=== PATIENT | male | born 1970 | race Two or more races ===

== ENCOUNTER 2025-06-21 13:51 | Inpatient (IN) | payer MEDICAID, SELFPAY ==
[2025-06-21 13:54] VITALS: BMI 25.2
[2025-06-21 15:38] VITALS: BP 168/85; PULSE 92; RESP 17; TEMP 36.9; O2SAT 96
--- NOTE | 2025-06-21 15:59 | XR_ITS ---
Examination: AP chest single view Technique one AP portable upright chest single view Date and time: June 21, 2025, 1618 hrs. Indications: Patient fell 2 days ago with injury to the chest, chest pain. Findings: Normal heart size. No pneumothorax. Visualized clavicles, bones of the shoulders, and ribs appear intact Impression: No pneumothorax pulmonary contusion or hemothorax
--- NOTE | 2025-06-21 15:59 | XR_ITS ---
Examination: CT brain head without contrast. 2-D sagittal coronal reconstructions Date and time of exam:June 21, 2025, 1712 hrs. Indications: Ground-level fall 2 days ago with injury to head, head pain CTDI: vol (mGy):47.4 DLP: (mGycm):901 Technique: Multiple CT axial sections of the brain have been obtained, 5 mm slice thickness. Contrast has not been administered. 2-D sagittal, coronal reconstructions have been obtained Low dose protocols were performed. One or more of the following dose reduction techniques were used; automated exposure control, adjustment of the mA and/or KV according to patient size, use of iterative reconstruction technique. Findings: Study is significantly limited by patient motion Ventricles are not enlarged. No mass effect upon the ventricular system. No acute hemorrhage density either intra or extra-axial Cranial vault appears grossly intact Impression: Study is significantly limited by patient motion No acute hemorrhage or mass effect noted
--- NOTE | 2025-06-21 16:00 | EKG_ITS ---
[facility] Test Date: 2025-06-21 Pat Name: JESSICA DUMONT Department: Room: - Gender: Male Officer Lieutenant: : 1970 Requested By: Luis Rahman Order Number: [id number] Reading MD: Luis Rahman Measurements Intervals [place] Rate: 88 P: 66 DE: 162 QRS: 51 QRSD: 94 T: 33 QT: 394 QTc: 477 Interpretive Statements SINUS RHYTHM NONSPECIFIC T-WAVE ABNORMALITY Compared to ECG 04/19/2023 10:30:18 T-wave abnormality now present Sinus tachycardia no longer present ST (T wave) deviation no longer present /store/S0/[id number]/ecg/[id number].pdf
--- NOTE | 2025-06-21 16:01 | EDNOTE_ITS ---
ED Fall Injury RME/HPI General Chief Complaint: Fall Stated Complaint: BODY ACHES S/P FALL X2 DAYS Time Seen by Provider: 06/21/25 14:21 Arrival date/time: 06/21/25 13:51 RME / HPI RME / HPI Narrative: 55-year-old male patient with significant history of chronic alcoholism, came in with family for evaluation regarding fall. Patient sustained a ground-level fall about 2 days ago hit head, and also complaining of headache and chest wall pain. Currently patient is shaky, and feels anxious, last alcohol intake was yesterday. No vomiting no hallucination no other complaints noted. Related Data Previous Rx's ?Medication ?Instructions ?Recorded multivitamin with folic acid 400 1 tab PO QDAY #30 tab s 05/03/23 mcg tablet (Tab-A-Evie) thiamine mononitrate (vit B1) 100 100 mg PO QDAY #30 t abs 05/03/23 mg tablet (Vitamin B-1 (mononitrate)) Allergies Allergy/AdvReac Type Severity Reaction Status Date / Time No Known Allergies Allergy Verified 06/21/25 13:59 Review of Systems Review of Systems Narrative Review of Systems: 55-year-old male patient with significant history of chronic alcoholism, came in with family for evaluation regarding fall. Patient sustained a ground-level fall about 2 days ago hit head, and also complaining of headache and chest wall pain. Currently patient is shaky, and feels anxious, last alcohol intake was yesterday. No vomiting no hallucination no other complaints noted. ED Exam Narrative Physical exam: VITAL SIGNS: Reviewed. GENERAL APPEARANCE: Alert and interactive, follows commands, no acute distress, shaky, anxious HEAD AND FACE: Non-traumatic. ENT: PERRL, pink conjunctivitis, eyelid no trauma, Mucous membrane moist. 2 x 2 molelike lesion on the bridge of the nose NECK: Supple, nontender, no nuchal rigidity. CHEST: No tenderness, no crepitus, no paradoxical movement, no retractions. LUNGS: Clear, well ventilated, symmetric, no rales, no wheezing, no ronchi, no stridor, good breath sounds bilaterally. HEART: Regular rate, regular rhythm, no murmur, no gallops. ABDOMEN: Soft, positive bowel sounds, nondistended, no guarding, nontender, no rebound, no masses, RECTAL: Deferred. GENITAL: Deferred. NEUROLOGICAL: Gross motor function intact sensory function intact, Appropriate for age. MUSCULOSKELETAL: low back nontender, full range of motion. EXTREMITIES: Nontender, full range of motion. SKIN: Color pink, dry, no rash, no lacerations, no abrasions, no contusions. LYMPHATICS: Deferred. Course Quality Measures none Orders Category Date Time Status EKG (ED ONLY) *Do not use* NOW Care 06/21/25 16:[address] head/brain wo con Stat Exams 06/21/25 15:59 Completed EKG (ED Only) Stat Exams 06/21/25 16:00 Draft XR chest 1V Stat Exams 06/21/25 15:59 Completed Alcohol, Blood Medical Stat Lab 06/21/25 16:19 Completed CBC Stat Lab 06/21/25 16:19 Completed Comprehensive Metabolic Panel Stat Lab 06/21/25 16:19 Completed Drug Screen,Urine Stat Lab 06/21/25 18:45 Completed Magnesium Stat Lab 06/21/25 16:19 Completed Partial Thromboplastin Time Stat Lab 06/21/25 16:19 Completed Troponin I Stat Lab 06/21/25 16:19 Completed Urinalysis, C/S if Indicated Stat Lab 06/21/25 18:40 Completed Diazepam [Valium] Med 06/21/25 16:03 Discontinued 10 mg PO X1 ONE PHENobarbital Inj 130 mg Med 06/21/25 18:12 Discontinued Sodium Chloride 0.9% Flush [NS Flush] 12 ml IVP X1 Ringers Lactated 1000 ml [Lactated Ringers] 1,000 ml Med 06/21/25 16:00 Discontinued IV 999 mls/hr Thiamine Inj [Vitamin B-1 Inj] 100 mg Med 06/21/25 16:00 Discontinued Sodium Chloride 0.9% [Ns] 100 ml IV X1 chlordiazePOXIDE HCl [Librium] Med 06/21/25 15:59 Discontinued 25 mg PO X1 ONE Vital Signs Vital signs: Vital Signs Temperature 98.4 F 06/21/25 15:38 Pulse Rate 92 06/21/25 15:38 Respiratory Rate 17 06/21/25 15:38 Blood Pressure 168/85 H 06/21/25 15:38 Pulse Oximetry (%) 96 06/21/25 15:38 Oxygen Delivery Method Room Air 06/21/25 15:38 Fall MDM Narrative MDM Narrative:: 55-year-old male patient with significant history of chronic alcoholism, came in with family for evaluation regarding fall. Patient sustained a ground-level fall about 2 days ago hit head, and also complaining of headache and chest wall pain. Currently patient is shaky, and feels anxious, last alcohol intake was yesterday. No vomiting no hallucination no other complaints noted. CT scan of the head came back unremarkable chest x-ray came back unremarkable patient's alcohol level today is undetectable. Patient's workup all came back unremarkable, except for total bili 1.3, AST of 47. Urinalysis no UTI CIWA score was noted to be 15. Patient received IV fluids, Librium, Valium, and phenobarbital IV. Case discussed with hospitalist, who admitted the patient. Patient data External records reviewed:: None Clinical information provided by:: patient Social determinants that could affect healthcare access:: alcohol use Patient has the following chronic illnesses:: Chronic alcoholism How is presenting disease/condition affected by chronic disease/condition?: exacerbated by Evaluation data The following diagnostics were reviewed and interpreted by me:: lab results, radiology exam(s) and EKG tracing(s) Lab and/or radiology exams considered but not ordered:: None Interpretation Summary: EKG showed normal sinus rhythm, ventricular rate of 88 bpm, no ST segment elevation or depression noted. Medications / Prescriptions Medications or Prescriptions considered but not ordered:: None thiamine, IV fluids, Valium, phenobarb and Librium Medication administrations:: Medication Administration History Discontinued Medications Chlordiazepoxide HCl (Chlordiazepoxide Hcl 25 Mg Capsule) 25 mg PO X1 ONE Stop: 06/21/25 16:00 Last Admin: 06/21/25 16:27 Dose: 25 mg Documented By: OA Phenobarbital Sodium 130 mg/ (Sodium Chloride 12 ml) 0 mg IVP X1 ONE Stop: 06/21/25 18:13 Last Admin: 06/21/25 18:36 Dose: 130 mg Documented By: BY Diazepam (Diazepam 5 Mg Tablet) 10 mg PO X1 ONE Stop: 06/21/25 16:04 Last Admin: 06/21/25 16:27 Dose: 10 mg Documented By: OA Lactated Ringer's (Lactated Ringers) 1,000 mls @ 999 mls/hr IV .Q1H1M ONE Stop: 06/21/25 17:00 Last Infusion: 06/21/25 18:32 Dose: Infused Documented By: Admin: 06/21/25 17:31 Dose: 999 mls/hr Documented By: MARIANO Thiamine HCl 100 mg/ Sodium (Chloride) 101 mls @ 202 mls/hr IV X1 ONE Stop: 06/21/25 16:29 Last Infusion: 06/21/25 18:01 Dose: Infused Documented By: Admin: 06/21/25 17:31 Dose: 202 mls/hr Documented By: KARTHIKOR IV fluids, Librium, Valium, phenobarbital, thiamine Consultations Consultation(s) initiated? (list below): No Diagnosis Fall Differential Diagnosis: other (Alcohol withdrawal symptoms, frequent fall) Most likely diagnosis given after review of the tests above:: Alcohol withdrawal symptoms, frequent falls Admission Indicated Admission indicated?: not indicated Admission Request Was there a request for admission?: Yes Admission Attestation Admission request attestation: Discussed case with Hospitalist service regarding admission. Discussed patients ED course, exam findings, labs, and radiology results. The Hospitalist [agrees] to accept the patient for admission. Disposition Plan Disposition Plan: Admit Discharge Plan Plan Patient Disposition: Admit Acute Care w/in Hospital Prescriptions/Referrals Prescriptions/Med Rec: No Action thiamine mononitrate (vit B1) [Vitamin B-1 (mononitrate)] 100 mg tablet 100 mg PO QDAY Qty: 30 0RF multivitamin with folic acid [Tab-A-Evie] 400 mcg tablet 1 tab PO QDAY Qty: 30 0RF Referrals: No Primary/Family,Physician [Primary Care Provider] - In 1 week Problem List Clinical Impression: Alcohol withdrawal syndrome Patient/Caregiver Discharge Instructions Print Language: Malay Stand Alone Forms: Cat Award Info., Patient Portal Info Letter
[2025-06-21] MEDS: DIAZEPAM 5 MG TABLET 10 MG PO (16:27)
[2025-06-21 16:44] LABS: Basophils # (Auto) 0.1 Thou/mm3 (0.0-0.2); Basophils % (Auto) 1 % (0-2.5); Eosinophils # (Auto) 0.0 Thou/mm3 (0.0-0.5); Eosinophils % (Auto) 0 % (0-10); Hematocrit 38.4 % (41.0-53.0); Hemoglobin 13.1 g/dL (13.5-16.0); Immature Granulocytes Auto 0.07 Thou/mm3 (0.00-0.00); Lymphocytes # (Auto) 0.6 Thou/mm3 (1.0-4.8); Lymphocytes % (Auto) 8 % (10-50); Mean Corpuscular HGB Conc 34.1 g/dl (31.0-37.0); Mean Corpuscular Hemoglobin 33.5 pg (25.0-35.0); Mean Corpuscular Volume 98 fL (80-100); Monocytes # (Auto) 0.7 Thou/mm3 (0.0-0.8); Monocytes % (Auto) 10 % (0-12); Neutrophils # (Auto) 5.8 Thou/mm3 (1.8-7.7); Neutrophils % (Auto) 80 % (37-80); Nucleated Red Blood Cell # 0.00 Thou/mm3 (0.00-0.00); Nucleated Red Blood Cell % 0 /100 WBC (0); Partial Thromboplastin Time 25.9 Seconds (22.0-36.0); Platelet Count 85 Thou/mm3 (140-440); RDW Standard Deviation 46.9 fL (35.1-43.9); Red Blood Count 3.91 Miln/mm3 (4.50-5.90); White Blood Count 7.3 Thou/mm3 (3.8-10.6)
[2025-06-21 16:59] LABS: Alanine Aminotransferase 38 U/L (10-49); Albumin, Serum 4.9 gm/dL (3.5-5.0); Albumin/Globulin Ratio 1.6 (1.2-2.2); Alcohol, Blood Medical < 3.0 mg/dL (0-10.0); Alkaline Phosphatase 59 U/L (46-116); Anion Gap 12 (7-16); Aspartate Amino Transferase 47 U/L (0-34); BUN/Creatinine Ratio 11 Ratio (12-20); Bilirubin,Total 1.3 mg/dL (0.3-1.2); Blood Urea Nitrogen 9 mg/dL (9-23); Calcium 9.2 mg/dL (8.3-10.6); Calcium (Corrected) 9.2 mg/dL (8.5-10.1); Carbon Dioxide 28.4 mMol/L (20.0-31.0); Chloride 99 mMol/L (98-107); Creatinine (Component) 0.8 mg/dL (0.6-1.3); Estimated Creatinine Clearance 100.9 mL/min (>60); Globulin 3.1 gm/dL (2.3-3.5); Glucose 188 mg/dL (74-106); Magnesium 1.7 mg/dL (1.6-2.6); Osmolality,Calculated 281 (275-295); Potassium 3.7 mMol/L (3.4-5.1); Sodium 139 mMol/L (136-145); Total Protein 8.0 gm/dL (5.7-8.2); Troponin I < 0.020 ng/mL (0.0-0.045); eGFR > 60 See Note
[2025-06-21] MEDS: RINGERS LACTATED 1000 ML 1,000 ML 999 ML IV (17:31)
[2025-06-21] MEDS: THIAMINE INJ 100 MG in SODIUM CHLORIDE 0.9% 100 ML 202 MG IV (17:31)
--- NOTE | 2025-06-21 17:39 | PC.NURSE ---
Lead nurse aware [facility] 15
[2025-06-21 18:10] VITALS: BP 141/108; PULSE 87; RESP 18; TEMP 37; O2SAT 95
[2025-06-21 18:16] VITALS: BP 143/93; PULSE 78; RESP 18; TEMP 36.7; O2SAT 98
[2025-06-21] MEDS: PHENobarbital Inj 130 MG, SODIUM CHLORIDE 0.9% FLUSH 12 ML IVP (18:36)
[2025-06-21 18:57] LABS: Collection Type, Urine Clean Catch; Squamous Epithelial Cell,Urine 0 /hpf (0-5)
[2025-06-21 19:03] LABS: Bilirubin,Urine Negative (Negative); Blood,Urine Negative (Negative); Clarity,Urine Clear (Clear/Hazy); Color,Urine Lt-Yellow (Lt Yel-Yel); Culture Indicated,Urine Not Indicated; Glucose, Urine Trace (Negative); Ketones,Urine Negative (Negative); Leukocyte Esterase,Urine Negative (Negative); Nitrite,Urine Negative (Negative); PH,Urine 7.0 (5.0-7.0); Protein,Urine 1+ (Neg - Trace); RBC,Urine 1 /hpf (0-3); Specific Gravity,Urine 1.008 (1.001-1.035); Urobilinogen,Urine Negative mg/dL (0.0-1.0); WBC,Urine < 1 /hpf (0-5)
[2025-06-21 19:47] VITALS: BP 124/82; PULSE 79; RESP 18; TEMP 37.2; O2SAT 98
[2025-06-21 20:40] LABS: Amphetamine/Methamp Scrn,U Negative (Negative); Barbiturate Screen,Urine Negative (Negative); Benzodiazepines Screen,Urine Negative (Negative); Benzoylecgonine Screen, Ur Negative (Negative); Fentanyl Screen,Urine Negative (Negative); Opiate Screen,Urine Negative (Negative); THC Screen,Urine Negative (Negative)
[2025-06-21] MEDS: THIAMINE INJ 500 MG in SODIUM CHLORIDE 0.9% 100 ML 205 MG IV (21:07)
[2025-06-21] MEDS: FOLIC ACID INJ 1 MG/0.2 ML IVP (21:09)
--- NOTE | 2025-06-21 21:14 | ESHP_ITS ---
Documentation for date of: 06/21/25 HPI History of Present Illness Chief complaint: Alcohol withdrawal History of present illness: 55-year-old male with past medical history of hypertension, alcohol use disorder with prior hospitalizations for severe alcohol withdrawal who presented to the ED due to anxiety and tremors all over his body. Patient states that he usually drinks 8-10 tall beers every day. Last drink was 06/20/2025 around 4 PM. Today started to feel anxiety with bugs crawling around his skin, nausea but no vomiting, but does endorse auditory hallucinations. Per the patient 2 years ago was here for similar symptoms and ended up being intubated and put in the ICU for about a week requiring precedex drip. Aditionally patient has a ulcerating/ bleeding in the nasal region, endorses the patient has been having weight loss in the past 4months. Patient denies fever, chills, shortness of breath, chest pain, chest pressure, PND, orthopnea, vomiting, abdominal pain. Patient will be admitted for management of alcohol withdrawal symptoms. ED course: BP 160/85, HR 92 bpm, RR 17, saturating 96% on room air, labs significant for hemoglobin 13.1, glucose 188, T. bili 1.3, AST 47, UA negative for UTI, U tox negative for any drug use. Head CT negative for any acute hemorrhage, midline shift or lala effect. PMHx: As above SxHx: unknown Social Hx: drinks about 8-10 tall beers a day, denies cigarette use, denies illicit substances including THC FHx: Unknown Review of Systems Review of Systems Systems Reviewed: All systems reviewed, normal except as documented Exam Vital Signs Temp Pulse Resp BP Pulse Ox O2 Del Method 99 F 79 18 124/82 98 Room Air 06/21/25 19:47 06/21/25 19:47 06/21/25 19:47 06/21/25 19:47 06/21/25 19:47 06/21/25 19:47 Narrative Exam Physical Exam GENERAL: NAD, AAOx3 HEENT: Moist mucosa. Eyes open, symmetrical, & clear, horizontal nystagmus, nares with ulcerating bleeding lesion CARDIO/chest: Heart RRR, no obvious murmurs, bruising on left upper chest. PULM: No noted coughing/dyspnea CTA B/L, no R/W/R GI: Abdomen soft, nondistended, no pain on palpation. BSx4 SKIN/MSK/EXT: No wounds/rashes/edema/amputations, no pain on palpation. Pedal pulses present B/L NEURO: AAOx3, no focal neuro deficits, able to move all 4 extremities Results: Labs 06/21/25 16:19 06/21/25 16:19 Labs: Short CBC 06/21/25 Range/Units 16:19 WBC 7.3 (3.8-10.6) Thou/mm3 Hgb 13.1 L (13.5-16.0) g/dL Hct 38.4 L (41.0-53.0) % Plt Count 85 L (140-440) Thou/mm3 BMP 06/21/25 16:19 Sodium 139 Potassium 3.7 Chloride 99 Carbon Dioxide 28.4 BUN 9 Creatinine 0.8 Glucose 188 H Calcium 9.2 Cardiac Enzymes 06/21/25 Range/Units 16:19 Troponin I < 0.020 (0.0-0.045) ng/mL Liver Function 06/21/25 Range/Units 16:19 Total Bilirubin 1.3 H (0.3-1.2) mg/dL AST 47 H (0-34) U/L ALT 38 (10-49) U/L Alkaline Phosphatase 59 (46-116) U/L Albumin 4.9 (3.5-5.0) gm/dL Urine 06/21/25 Range/Units 18:40 Urine Color Lt-Yellow (Lt Yel-Yel) Urine Clarity Clear (Clear/Hazy) Urine pH 7.0 (5.0-7.0) Ur Specific [place] 1.008 (1.001-1.035) Urine Protein 1+ A (Neg - Trace) Urine Glucose (UA) Trace (Negative) Quality Measures Quality Measures VTE prophylaxis Medications Home Medications and Allergies Allergies Allergy/AdvReac Type Severity Reaction Status Date / Time No Known Allergies Allergy Verified 06/21/25 13:59 Visit Medications Acetaminophen (Acetaminophen 325 Mg Tablet) 650 mg PO Q6H PRN PRN Reason: Fever >100.4 Stop: 07/21/25 20:56 Acetaminophen (Acetaminophen 325 Mg Tablet) 650 mg PO Q6H PRN PRN Reason: PAIN SCALE 1-3 (mild Stop: 07/21/25 20:56 Chlordiazepoxide HCl (Chlordiazepoxide Hcl 25 Mg Capsule) 50 mg PO Q6HR AGA Stop: 06/27/25 00:00 Diazepam (Diazepam Inj 5 Mg/Ml Vial 2 Ml) 5 mg IVP Q2HR PRN PRN Reason: CIWA SCORE 12-19 Stop: 06/26/25 20:56 Diazepam (Diazepam Inj 5 Mg/Ml Vial 2 Ml) 10 mg IVP Q4HR PRN PRN Reason: CIWA >20 Stop: 06/26/25 21:02 Thiamine HCl 500 mg/ Sodium (Chloride) 105 mls @ 205 mls/hr IV X1 ONE Stop: 06/21/25 21:24 Last Admin: 06/21/25 21:07 Dose: 205 mls/hr Sodium Chloride (Ns) 1,000 mls @ 100 mls/hr IV .Q10H AGA Stop: 07/21/25 20:59 Lorazepam (Lorazepam 0.5 Mg Tablet) 1 mg PO Q4HR PRN PRN Reason: CIWA SCORE 7-11 Stop: 06/26/25 20:56 Ondansetron HCl (Ondansetron Inj 2 Mg/Ml Inj 2 Ml) 4 mg IVP Q6H PRN; Protocol PRN Reason: NAUSEA OR VOMITING Stop: 07/21/25 20:56 Pantoprazole Sodium (Pantoprazole Inj 40 Mg Vial) 40 mg IVP QDAY AGA Stop: 07/22/25 08:59 Sennosides (Senna Tablet) 1 tab PO QDAY PRN; Protocol PRN Reason: constipation Stop: 07/21/25 20:56 Discontinued Medications Chlordiazepoxide HCl (Chlordiazepoxide Hcl 25 Mg Capsule) 25 mg PO X1 ONE Stop: 06/21/25 16:00 Last Admin: 06/21/25 16:27 Dose: 25 mg Phenobarbital Sodium 130 mg/ (Sodium Chloride 12 ml) 0 mg IVP X1 ONE Stop: 06/21/25 18:13 Last Admin: 06/21/25 18:36 Dose: 130 mg Diazepam (Diazepam 5 Mg Tablet) 10 mg PO X1 ONE Stop: 06/21/25 16:04 Last Admin: 06/21/25 16:27 Dose: 10 mg Folic Acid (Folic Acid Inj 1 Mg/0.2 Ml) 1 mg IVP X1 ONE Stop: 06/21/25 20:55 Last Admin: 06/21/25 21:09 Dose: 1 mg Lactated Ringer's (Lactated Ringers) 1,000 mls @ 999 mls/hr IV .Q1H1M ONE Stop: 06/21/25 17:00 Last Infusion: 06/21/25 18:32 Dose: Infused Thiamine HCl 100 mg/ Sodium (Chloride) 101 mls @ 202 mls/hr IV X1 ONE Stop: 06/21/25 16:29 Last Infusion: 06/21/25 18:01 Dose: Infused Assessment & Plan Plan 55-year-old male with past medical history as stated above who presented to the ED with anxiety and alcohol withdrawal symptoms. Patient was admitted for alcohol withdrawal. #Alcholol withdrawal #Concern for [place]ernickes Patient states that he usually drinks 8-10 tall beers every day. Last drink was 06/20/2025 around 4 PM. Today started to feel anxiety with bugs crawling around his skin, nausea but no vomiting, but does endorse auditory hallucinations On physical exam horizontal nystagmus noted, with confabulation and patient has been having falls recently Head CT was negative for acute bleed, midline shift or mass effect. ? CIWA protocol ? Librium 50mg q 6hr ? IV fluids ? Thiamine 100mg + 500mg IV ? 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 - Consulted oncology, appreciate reccs #Hypertensive urgency #Hypertension ?Resume antihypertensives as taken at home, pending med rec #Hyperglycemia F/U HgbA1c Case discussed with my attending Dr. Evans Caballero MD PGY-2 Disclaimer: Despite multiple revisions, due to the dictation software being used, the document bellow may not be free of grammatical errors including phonetic/typographic errors. However, this does not deter from our commitment to providing health care in the patient's best interest in mind. Attending Provider Attestation/Addendum After examination of the patient and review of the clinical data I feel that this patient needs admission to the hospital for further treatment/evaluation. Plan of care discussed with patient and is in agreement. I Valentin Krueger MD, attest that I was physically present for moreno portions of evaluation, and examined patient, labs and imagings and plan of care were discussed with IM residents team, and I agree with the findings and plans documented above.
[2025-06-21 22:09] VITALS: BP 125/88; PULSE 84; RESP 19; TEMP 37.1; O2SAT 98
[2025-06-21] MEDS: SODIUM CHLORIDE 0.9% 1000 ML 1,000 ML 100 ML IV (22:12)
--- NOTE | 2025-06-21 22:25 | PC.NURSE ---
Hospitalist Dr. Krueger at bedside.
--- NOTE | 2025-06-21 22:45 | PC.NURSE ---
Report given to RACHEL Rowe Tele
[2025-06-22] VITALS (8 sets, daily range): BP systolic 128–156; BP diastolic 84–97; PULSE 77–166; RESP 12–37; TEMP 35.9–36.4; O2SAT 93–98
[2025-06-22 05:47] LABS: Basophils # (Auto) 0.1 Thou/mm3 (0.0-0.2); Basophils % (Auto) 1 % (0-2.5); Eosinophils # (Auto) 0.0 Thou/mm3 (0.0-0.5); Eosinophils % (Auto) 0 % (0-10); Hematocrit 38.9 % (41.0-53.0); Hemoglobin 13.2 g/dL (13.5-16.0); Immature Granulocytes Auto 0.03 Thou/mm3 (0.00-0.00); Lymphocytes # (Auto) 0.7 Thou/mm3 (1.0-4.8); Lymphocytes % (Auto) 13 % (10-50); Mean Corpuscular HGB Conc 33.9 g/dl (31.0-37.0); Mean Corpuscular Hemoglobin 33.7 pg (25.0-35.0); Mean Corpuscular Volume 99 fL (80-100); Monocytes # (Auto) 0.4 Thou/mm3 (0.0-0.8); Monocytes % (Auto) 7 % (0-12); Neutrophils # (Auto) 4.2 Thou/mm3 (1.8-7.7); Neutrophils % (Auto) 78 % (37-80); Nucleated Red Blood Cell # 0.00 Thou/mm3 (0.00-0.00); Nucleated Red Blood Cell % 0 /100 WBC (0); Platelet Count 90 Thou/mm3 (140-440); RDW Standard Deviation 47.8 fL (35.1-43.9); Red Blood Count 3.92 Miln/mm3 (4.50-5.90); White Blood Count 5.4 Thou/mm3 (3.8-10.6)
[2025-06-22 06:04] LABS: Glucose Estimated Average 105 mg/dL (80-131); Hemoglobin A1C 5.3 % Hgb (4.8-6.0)
[2025-06-22 06:14] LABS: Alanine Aminotransferase 70 U/L (10-49); Albumin, Serum 4.3 gm/dL (3.5-5.0); Albumin/Globulin Ratio 1.5 (1.2-2.2); Alkaline Phosphatase 52 U/L (46-116); Anion Gap 10 (7-16); Aspartate Amino Transferase 126 U/L (0-34); BUN/Creatinine Ratio 10 Ratio (12-20); Bilirubin,Total 1.3 mg/dL (0.3-1.2); Blood Urea Nitrogen 8 mg/dL (9-23); Calcium 8.8 mg/dL (8.3-10.6); Calcium (Corrected) 8.8 mg/dL (8.5-10.1); Carbon Dioxide 28.6 mMol/L (20.0-31.0); Chloride 103 mMol/L (98-107); Creatinine (Component) 0.8 mg/dL (0.6-1.3); Estimated Creatinine Clearance 100.9 mL/min (>60); Globulin 2.8 gm/dL (2.3-3.5); Glucose 89 mg/dL (74-106); Magnesium 1.8 mg/dL (1.6-2.6); Osmolality,Calculated 280 (275-295); Phosphorous 3.3 mg/dL (2.4-5.1); Potassium 3.4 mMol/L (3.4-5.1); Sodium 142 mMol/L (136-145); Total Protein 7.1 gm/dL (5.7-8.2); eGFR > 60 See Note
[2025-06-22] MEDS: HEPARIN SOD INJ 5000 UNIT/ML VIAL SC (08:32)
[2025-06-22] MEDS: FOLIC ACID 1 MG TABLET PO (08:33)
[2025-06-22] MEDS: THIAMINE 100 MG TABLET PO (10:18)
[2025-06-22] MEDS: SODIUM CHLORIDE 0.9% 1000 ML 1,000 ML 100 ML IV (10:34)
--- NOTE | 2025-06-22 11:42 | PC.SS ---
Patient Eliezer Hansen is a 55 Year old male admitted for Body Aches S/P Fall X2 Days. SS met with patient and patient's at bedside to discuss discharge plan and verify demographic information. Patient reports he lives at home with family. Patient reports his , Luz Hansen is his surrogate decision maker, [phone]. Patient is independent with all ADL's and does not utilize any source of DME. Choice of pharmacy is [facility]. Patient does not have PCP. SS inquired about ETOH resources and patient was open to them. SS provided patient with Community resources. At time of discharge patient will return back home. Patient's will provide transportation. Discharge plan: Home Next of kin: , Kimberly Hansen
--- NOTE | 2025-06-22 12:19 | ESPR_ITS ---
<Statement entered by Yanet Kim MD - 06/22/25 15:48> Patient was seen and examined at bedside. No acute overnight events. Labs and vitals are stable. Continue IV hydration Continue CIWA protocol Continue Librium 50 mg every 6 hours, will try to wean off tomorrow by switching to every 8 hours Close monitor alcohol withdrawal symptoms. I personally saw and examined the patient and discussed the assessment and plan with the entire medicine team, including my attending Dr Pickard. , Yanet Kim M.D. PGY-3 Disclaimer: Despite multiple revisions, due to the dictation software being used, the document bellow may not be free of grammatical errors including phonetic/typographic errors. However, this does not deter from our commitment to providing health care in the patient's best interest in mind. Documentation for date of: 06/22/25 Subjective Subjective Interval history: Patient seen at bedside. Overall feels like the symptoms have improved, still experiencing the tremors of the hands. Not seeing any double vision. No sensation of insects crawling anymore. No auditory hallucinations not complaining of any pain, no fevers chills, shortness of breath, chest pain, nausea and vomiting. Patient mentions that he feels like he is drinking too much and wants to quit. Exam Vital Signs Temp Pulse Resp BP Pulse Ox O2 Del Method 97.4 F 84 18 132/94 H 94 L Room Air 06/22/25 08:00 06/22/25 08:00 06/22/25 08:00 06/22/25 08:00 06/22/25 08:00 06/22/25 08:00 Narrative Exam GENERAL: NAD, AAOx3 HEENT: Moist mucosa. Eyes open, symmetrical, no nystagmus, no ptosis, nares with ulcerating bleeding lesion. CARDIO/chest: Heart RRR, no obvious murmurs, bruising on left upper chest. PULM: No noted coughing/dyspnea CTA B/L, no R/W/R GI: Abdomen soft, nondistended, no pain on palpation. BSx4 SKIN/MSK/EXT: No wounds/rashes/edema/amputations, no pain on palpation. Pedal pulses present B/L NEURO: AAOx3, no focal neuro deficits, able to move all 4 extremities. No. limb ataxia. Objective Labs 06/22/25 05:37 06/22/25 05:37 Labs: Laboratory Results - last 24 hr 06/21/25 06/21/25 06/21/25 16:19 18:40 18:45 WBC 7.3 RBC 3.91 L Hgb 13.1 L Hct 38.4 L MCV 98 MCH 33.5 MCHC 34.1 RDW Std Deviation 46.9 H Plt Count 85 L Neut % (Auto) 80 Lymph % (Auto) 8 L [place] % (Auto) 10 Eos % (Auto) 0 Baso % (Auto) 1 Neut # (Auto) 5.8 Lymph # (Auto) 0.6 L [place] # (Auto) 0.7 Eos # (Auto) 0.0 Baso # (Auto) 0.1 Immature Gran # (Auto) 0.07 H Absolute Nucleated RBC 0.00 Immature Gran % 1 H Nucleated RBC % 0 APTT 25.9 Sodium 139 Potassium 3.7 Chloride 99 Carbon Dioxide 28.4 Anion Gap 12 BUN 9 Creatinine 0.8 Estim Creat Clear Calc 100.9 eGFR > 60 BUN/Creatinine Ratio 11 L Glucose [address] Glu mg/dL Hemoglobin A1c Calculated Osmolality 281 Calcium 9.2 Corrected Calcium 9.2 Phosphorus Magnesium 1.7 Total Bilirubin 1.3 H AST 47 H ALT 38 Alkaline Phosphatase 59 Troponin I < 0.020 Total Protein 8.0 Albumin 4.9 Globulin 3.1 Albumin/Globulin Ratio 1.6 Ur Collection Type Clean Catch Urine Color Lt-Yellow Urine Clarity Clear Urine pH 7.0 Ur Specific [place] 1.008 Urine Protein 1+ A Urine Glucose (UA) Trace Urine Ketones Negative Urine Blood Negative Urine Nitrite Negative Urine Bilirubin Negative Urine Urobilinogen (Auto) Negative Ur Leukocyte Esterase Negative Urine RBC 1 Urine WBC < 1 Ur Squamous Epith Cells 0 Urine Bacteria None Ur Culture Indicated? Not Indicated Urine Opiates Screen Negative Urine Fentanyl Screen Negative Ur Barbiturates Screen Negative U Amphetamin/Meth Scrn Negative U Benzodiazepines Scrn Negative U Cocaine Metab Screen Negative U Marijuana (THC) Screen Negative Ethyl Alcohol < 3.0 06/22/25 05:37 WBC 5.4 RBC 3.92 L Hgb 13.2 L Hct 38.9 L MCV 99 MCH 33.7 MCHC 33.9 RDW Std Deviation 47.8 H Plt Count 90 L Neut % (Auto) 78 Lymph % (Auto) 13 [place] % (Auto) 7 Eos % (Auto) 0 Baso % (Auto) 1 Neut # (Auto) 4.2 Lymph # (Auto) 0.7 L [place] # (Auto) 0.4 Eos # (Auto) 0.0 Baso # (Auto) 0.1 Immature Gran # (Auto) 0.03 H Absolute Nucleated RBC 0.00 Immature Gran % 1 H Nucleated RBC % 0 APTT Sodium 142 Potassium 3.4 Chloride 103 Carbon Dioxide 28.6 Anion Gap 10 BUN 8 L Creatinine 0.8 Estim Creat Clear Calc 100.9 eGFR > 60 BUN/Creatinine Ratio 10 L Glucose [address] Glu mg/dL 105 Hemoglobin A1c 5.3 Calculated Osmolality 280 Calcium 8.8 Corrected Calcium 8.8 Phosphorus 3.3 Magnesium 1.8 Total Bilirubin 1.3 H AST 126 H ALT 70 H Alkaline Phosphatase 52 Troponin I Total Protein 7.1 Albumin 4.3 D Globulin 2.8 Albumin/Globulin Ratio 1.5 Ur Collection Type Urine Color Urine Clarity Urine pH Ur Specific [place] Urine Protein Urine Glucose (UA) Urine Ketones Urine Blood Urine Nitrite Urine Bilirubin Urine Urobilinogen (Auto) Ur Leukocyte Esterase Urine RBC Urine WBC Ur Squamous Epith Cells Urine Bacteria Ur Culture Indicated? Urine Opiates Screen Urine Fentanyl Screen Ur Barbiturates Screen U Amphetamin/Meth Scrn U Benzodiazepines Scrn U Cocaine Metab Screen U Marijuana (THC) Screen Ethyl Alcohol Quality Measures Quality Measures VTE prophylaxis Assessment & Plan Assessment Current Active Medications: Generic Name Dose Route Start Last Admin Trade Name Freq PRN Reason Stop Dose Admin Acetaminophen 650 mg 06/21/25 20:57 Acetaminophen 325 Mg Tablet PO 07/21/25 20:56 Q6H PRN Fever >100.4 Acetaminophen 650 mg 06/21/25 20:57 Acetaminophen 325 Mg Tablet PO 07/21/25 20:56 Q6H PRN PAIN SCALE 1-3 (mild Chlordiazepoxide HCl 50 mg 06/22/25 00:00 06/22/25 11:34 Chlordiazepoxide Hcl 25 Mg Capsule PO 06/27/25 00:00 50 mg Q6HR AGA Administration Diazepam 10 mg 06/21/25 21:03 Diazepam Inj 5 Mg/Ml Vial 2 Ml IVP 06/26/25 21:02 Q4HR PRN CIWA >20 Diazepam 5 mg 06/22/25 06:50 Diazepam Inj 5 Mg/Ml Vial 2 Ml IVP 06/26/25 20:56 Q2HR PRN CIWA SCORE 12-19 Folic Acid 1 mg 06/22/25 09:00 06/22/25 08:33 Folic Acid 1 Mg Tablet PO 07/22/25 08:59 1 mg QDAY AGA Administration Heparin Sodium (Porcine) 5,000 unit 06/22/25 09:00 06/22/25 08:32 Heparin Sod Inj 5000 Unit/Ml Vial SC 07/06/25 08:59 5,000 unit BID AGA Administration Sodium Chloride 1,000 mls @ 100 mls/hr 06/21/25 21:00 06/22/25 10:34 Ns IV 07/21/25 20:59 100 mls/hr .Q10H AGA Administration Lorazepam 1 mg 06/21/25 20:57 Lorazepam 0.5 Mg Tablet PO 06/26/25 20:56 Q4HR PRN CIWA SCORE 7-11 Lorazepam 0.5 mg 06/22/25 09:27 06/22/25 10:18 Lorazepam 0.5 Mg Tablet PO 06/27/25 09:26 0.5 mg Q8HR PRN Administration withdrawAl Ondansetron HCl 4 mg 06/21/25 20:57 Ondansetron Inj 2 Mg/Ml Inj 2 Ml IVP 07/21/25 20:56 Q6H PRN NAUSEA OR VOMITING Protocol Pantoprazole Sodium 40 mg 06/22/25 09:00 06/22/25 08:32 Pantoprazole Inj 40 Mg Vial IVP 07/22/25 08:59 40 mg QDAY AGA Administration Sennosides 1 tab 06/21/25 20:57 Senna Tablet PO 07/21/25 20:56 QDAY PRN constipation Protocol Thiamine HCl 100 mg 06/22/25 09:30 06/22/25 10:18 Thiamine 100 Mg Tablet PO 07/22/25 09:29 100 mg QDAY AGA Administration Plan 55-year-old male with past medical history of hypertension, alcohol use disorder with prior hospitalization for severe alcohol withdrawal, who presented to the ED with anxiety and alcohol withdrawal symptoms. Patient was admitted for alcohol withdrawal. #Alcholol withdrawal #Wernicke's encephalopathy, ruled out Patient states that he usually drinks 8-10 tall beers every day. Last drink was 06/20/2025 around 4 PM. Today started to feel anxiety with bugs crawling around his skin, nausea but no vomiting, but does endorse auditory hallucinations On physical exam no nystagmus noted, no anisocoria, no ptosis, no diplopia, no limb ataxia, no confusion, normal reflexes Head CT was negative for acute bleed, midline shift or mass effect. Patient received phenobarbital 130 mg x 1 in ED ? IV fluids ? CIWA protocol ? Librium 50mg q6hr ? Ativan 0.5 mg every 8 hours for CIWA 5-7 ? Thiamine 100mg daily ? 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 - Consulted oncology, appreciate reccs #Hx of Essential Hypertension Patient does not appear to be taking any medications for blood pressure #Hyperglycemia, resolved A1c 5.3 Health Maintenance: Diet: Regular GI prophylaxis: Protonix 40 daily DVT prophylaxis: heparin 5000 units twice daily Antibiotics: None CODE STATUS: Full Disposition: Telemetry Case discussed with my attending Dr. Pickard, and senior resident, Dr. Judy Avalos MD PGY-1 Attending Provider Attestation/Addendum I attest that I was physically present for the evaluation, physical examination, lab and imaging review of the patient with the residents. I discussed the case with the residents and agree with the findings and plans of care as documented above. Patient seen and examined at bedside this morning. He is a 55 years old male admitted overnight for management of alcohol withdrawal hypertensive urgency. At bedside this morning, appeared comfortable and denied any new complaints. But continues to have withdrawal symptoms with CIWA score going up to 14 this afternoon. Continues to be on diazepam as per CIWA scale and chlordiazepoxide 50 mg every 6 hours. This morning, patient noted to have good memory, was able to carry out normal conversation, did not have any focal neurological deficits or nystagmus on examination. Low suspicion for Wernicke's encephalopathy at this point. Switching back to 100 mg of thiamine daily along with folic acid. Patient is also awaiting oncology evaluation. Maryanne Pickard MD
--- NOTE | 2025-06-22 13:50 | PC.SS ---
SS follow up note; CIWA Protocol.
[2025-06-22] MEDS: DIAZEPAM INJ 5 MG/ML VIAL 2 ML IVP (14:33)
[2025-06-22] MEDS: DIAZEPAM INJ 5 MG/ML VIAL 2 ML 10 MG IVP ×2 (17:09→20:12)
[2025-06-22] MEDS: PHENobarbital INJ 130 MG/1 ML VIAL IVP (18:49)
--- NOTE | 2025-06-22 19:26 | PD.RESEVENT ---
Documentation for date of: 06/22/25 Event Note Event Note: Rapid response was called at 1923 for agitation and tachycardia. Vitals: HR 170s --> 166. BP 156/97, T 96.6, RR 34 at spO2 94%. Patient was agitated, diaphoretic, tremulous/psychomotor agitation. Patient is AOx0, visual hallucinations. Patient received Phenobarb 130 mg IV at 1849, lorazepam 1 mg IV at 1830, chlordiazepoxide 50 mg IV at 1721, and diazepam at diazepam 10 mg IV at 1709. Over the past 24 hrs patient received 2 doses of Phenobarb 130 mg IV. Ordered: no labs/imaging ordered Meds given: Phenobarb 130 mg IV x1 at 1929. Phenobarb 260 mg IV x1 at 1958. Diazepam 10 mg IV x1 at 2012. After administration of medications, patient continues to have tremors. 125/100, HR 112, RR 23, spO2 96 on RA. Plan discussed with Dr. Hopson and Dr. Evans Monroe MD PGY1
[2025-06-22] MEDS: PHENobarbital Inj 130 MG, SODIUM CHLORIDE 0.9% FLUSH 12 ML IVP ×4 (19:29→22:10)
[2025-06-23] VITALS: BP 124/97; PULSE 109; PULSE 126; RESP 21; TEMP 36.6; O2SAT 96
[2025-06-23] MEDS: DIAZEPAM INJ 5 MG/ML VIAL 2 ML 20 MG IVP (00:26)
[2025-06-23 04:00] VITALS: BP 134/96; PULSE 110; PULSE 115; RESP 20; TEMP 36.6; O2SAT 96
[2025-06-23] MEDS: PHENobarbital Inj 130 MG, SODIUM CHLORIDE 0.9% FLUSH 12 ML IVP ×4 (04:20→06:10)
[2025-06-23 05:44] LABS: Basophils # (Auto) 0.1 Thou/mm3 (0.0-0.2); Basophils % (Auto) 1 % (0-2.5); Eosinophils # (Auto) 0.0 Thou/mm3 (0.0-0.5); Eosinophils % (Auto) 0 % (0-10); Hematocrit 40.3 % (41.0-53.0); Hemoglobin 14.1 g/dL (13.5-16.0); Immature Granulocytes Auto 0.03 Thou/mm3 (0.00-0.00); Lymphocytes # (Auto) 1.2 Thou/mm3 (1.0-4.8); Lymphocytes % (Auto) 20 % (10-50); Mean Corpuscular HGB Conc 35.0 g/dl (31.0-37.0); Mean Corpuscular Hemoglobin 34.3 pg (25.0-35.0); Mean Corpuscular Volume 98 fL (80-100); Monocytes # (Auto) 0.6 Thou/mm3 (0.0-0.8); Monocytes % (Auto) 10 % (0-12); Neutrophils # (Auto) 4.0 Thou/mm3 (1.8-7.7); Neutrophils % (Auto) 68 % (37-80); Nucleated Red Blood Cell # 0.00 Thou/mm3 (0.00-0.00); Nucleated Red Blood Cell % 0 /100 WBC (0); Platelet Count 99 Thou/mm3 (140-440); RDW Standard Deviation 45.3 fL (35.1-43.9); Red Blood Count 4.11 Miln/mm3 (4.50-5.90); White Blood Count 5.8 Thou/mm3 (3.8-10.6)
[2025-06-23 06:00] VITALS: BMI 22.8
[2025-06-23 06:17] LABS: Alanine Aminotransferase 219 U/L (10-49); Albumin, Serum 4.5 gm/dL (3.5-5.0); Albumin/Globulin Ratio 1.5 (1.2-2.2); Alkaline Phosphatase 65 U/L (46-116); Anion Gap 12 (7-16); Aspartate Amino Transferase 297 U/L (0-34); BUN/Creatinine Ratio 8 Ratio (12-20); Bilirubin,Total 1.3 mg/dL (0.3-1.2); Blood Urea Nitrogen 6 mg/dL (9-23); Calcium 9.8 mg/dL (8.3-10.6); Calcium (Corrected) 9.8 mg/dL (8.5-10.1); Carbon Dioxide 26.8 mMol/L (20.0-31.0); Chloride 104 mMol/L (98-107); Creatinine (Component) 0.8 mg/dL (0.6-1.3); Estimated Creatinine Clearance 100.6 mL/min (>60); Globulin 3.0 gm/dL (2.3-3.5); Glucose 97 mg/dL (74-106); Magnesium 1.9 mg/dL (1.6-2.6); Osmolality,Calculated 282 (275-295); Phosphorous 2.9 mg/dL (2.4-5.1); Potassium 3.2 mMol/L (3.4-5.1); Sodium 143 mMol/L (136-145); Total Protein 7.5 gm/dL (5.7-8.2); eGFR > 60 See Note
--- NOTE | 2025-06-23 07:47 | ESCONSULT_ITS ---
HPI Data of Consult Requesting Physician: Valentin Krueger MD Primary Care Provider: Physician No Primary/Family Consult Narrative Reason for consult: Possible malignancy involving nose History of present illness: 55-year-old gentleman with alcohol use disorder, admitted with alcohol withdrawal symptoms. Admitted with [facility] protocol. Noted to have ulcer tumor in nasal dorsum reportedly growing for the past 2 months associated with bleeding. Labs on admission 06/21/2025 WBC 7.3 hemoglobin 13.1. Elevated LFTs with 1.3 bilirubin AST 126 ALT 70 later elevated to AST 297 ALT 219. Patient noted to have hypertensive urgency and tachycardia and agitation for which he needed urgent sedation with phenobarb lorazepam chlordiazepoxide via rapid response team late last night. cc:: cc: Valentin Krueger MD Past Medical History Social History SOCIAL: Reportedly drinks 8-10 beers a day denies smoking Past Medical History Comments PMH COMMENT: Hypertension Long history of alcoholism Meds Home Medications and Allergies Allergies Allergy/AdvReac Type Severity Reaction Status Date / Time No Known Allergies Allergy Verified 06/21/25 13:59 Exam Vital Signs Temp Pulse Resp BP Pulse Ox O2 Del Method 97.8 F 115 H 20 134/96 H 96 Room Air 06/23/25 04:00 06/23/25 04:00 06/23/25 04:00 06/23/25 04:00 06/23/25 04:00 06/22/25 12:00 Narrative Exam There is a easily visible 1 cm 1.5 cm sized encrusted ulcerating lesion dorsum of nose. Patient is sleeping soundly with care provider at bedside. Results Labs 06/23/25 05:12 06/23/25 05:12 Labs: Short CBC 06/23/25 Range/Units 05:12 WBC 5.8 (3.8-10.6) Thou/mm3 Hgb 14.1 (13.5-16.0) g/dL Hct 40.3 L (41.0-53.0) % Plt Count 99 L (140-440) Thou/mm3 BMP 06/23/25 05:12 Sodium 143 Potassium 3.2 L Chloride 104 Carbon Dioxide 26.8 BUN 6 L Creatinine 0.8 Glucose 97 Calcium 9.8 Liver Function 06/23/25 Range/Units 05:12 Total Bilirubin 1.3 H (0.3-1.2) mg/dL AST 297 H (0-34) U/L ALT 219 H (10-49) U/L Alkaline Phosphatase 65 D (46-116) U/L Albumin 4.5 (3.5-5.0) gm/dL Assessment and Plan Additional Assessment & Plan Additional Plan: 1. Admitted with alcohol withdrawal syndrome on CIWA protocol. 2. Encrusted bleeding lesion dorsum of nose, likely skin malignancy, possible melanoma. 3. Recommend biopsy performed by general surgeon during hospital stay.
[2025-06-23 08:00] VITALS: BP 95/75; PULSE 105; PULSE 106; RESP 18; TEMP 36.3; O2SAT 94
[2025-06-23] MEDS: POTASSIUM CHL 10 mEq IVPB 10 MEQ/100 ML BAG 100 MEQ IV ×4 (08:44→13:06)
[2025-06-23] MEDS: Magnesium Sulfate 4 GM Ivpb 4 GM/50 ML BAG IV (08:46)
[2025-06-23] MEDS: HEPARIN SOD INJ 5000 UNIT/ML VIAL SC ×2 (08:50→20:17)
--- NOTE | 2025-06-23 09:11 | PC.SS ---
Follow up note: IV sedative. Alcohol withdrawals. On CWAL Protocol. Pt will return home upon dc.
[2025-06-23] MEDS: THIAMINE INJ 100 MG/ML VIAL 2 ML IVP (10:20)
[2025-06-23] MEDS: FOLIC ACID INJ 1 MG/0.2 ML IVP (10:21)
--- NOTE | 2025-06-23 11:51 | PD.RESPRO ---
Documentation for date of: 06/23/25 Subjective Subjective Interval history: Patient seen at bedside. Rapid response was called at 7:30 PM for agitation and tachycardia, see event note. This a.m. patient sedated from phenobarbital, required 9 pushes since last evening for ongoing hallucinations visual in nature, tremors, agitation with pulling on lines, disorientation. Exam Vital Signs Temp Pulse Resp BP Pulse Ox O2 Del Method 97.8 F 115 H 20 134/96 H 96 Room Air 06/23/25 04:00 06/23/25 04:00 06/23/25 04:00 06/23/25 04:00 06/23/25 04:00 06/22/25 12:00 Narrative Exam GENERAL: NAD, sedated HEENT: Moist mucosa. Eyes open, symmetrical, no nystagmus, no ptosis, nares with ulcerating bleeding lesion. CARDIO/chest: Heart RRR, no obvious murmurs, bruising on left upper chest. PULM: No noted coughing/dyspnea CTA B/L, no R/W/R GI: Abdomen soft, nondistended, no pain on palpation. BSx4 SKIN/MSK/EXT: No wounds/rashes/edema/amputations, no pain on palpation. Pedal pulses present B/L NEURO: Limited as patient sedated Objective Labs 06/23/25 05:12 06/23/25 05:12 Labs: Laboratory Results - last 24 hr 06/23/25 05:12 WBC 5.8 RBC 4.11 L Hgb 14.1 Hct 40.3 L MCV 98 MCH 34.3 MCHC 35.0 RDW Std Deviation 45.3 H Plt Count 99 L Neut % (Auto) 68 Lymph % (Auto) 20 [place] % (Auto) 10 Eos % (Auto) 0 Baso % (Auto) 1 Neut # (Auto) 4.0 Lymph # (Auto) 1.2 [place] # (Auto) 0.6 Eos # (Auto) 0.0 Baso # (Auto) 0.1 Immature Gran # (Auto) 0.03 H Absolute Nucleated RBC 0.00 Immature Gran % 1 H Nucleated RBC % 0 Sodium 143 Potassium 3.2 L Chloride 104 Carbon Dioxide 26.8 Anion Gap 12 BUN 6 L Creatinine 0.8 Estim Creat Clear Calc 100.6 eGFR > 60 BUN/Creatinine Ratio 8 L Glucose 97 Calculated Osmolality 282 Calcium 9.8 Corrected Calcium 9.8 Phosphorus 2.9 Magnesium 1.9 Total Bilirubin 1.3 H AST 297 H ALT 219 H Alkaline Phosphatase 65 D Total Protein 7.5 Albumin 4.5 Globulin 3.0 Albumin/Globulin Ratio 1.5 Quality Measures Quality Measures VTE prophylaxis Assessment & Plan Assessment Current Active Medications: Generic Name Dose Route Start Last Admin Trade Name Freq PRN Reason Stop Dose Admin Acetaminophen 650 mg 06/21/25 20:57 Acetaminophen 325 Mg Tablet PO 07/21/25 20:56 Q6H PRN Fever >100.4 Acetaminophen 650 mg 06/21/25 20:57 Acetaminophen 325 Mg Tablet PO 07/21/25 20:56 Q6H PRN PAIN SCALE 1-3 (mild Diazepam 2.5 mg 06/23/25 09:34 Diazepam Inj 5 Mg/Ml Vial 2 Ml IVP 06/28/25 09:33 Q2HR PRN CIWA SCORE 8-13 Diazepam 10 mg 06/23/25 09:34 Diazepam Inj 5 Mg/Ml Vial 2 Ml IVP 06/28/25 09:33 Q2HR PRN CIWA SCORE 20-25 Diazepam 5 mg 06/23/25 09:34 Diazepam Inj 5 Mg/Ml Vial 2 Ml IVP 06/28/25 09:33 Q2HR PRN CIWA SCORE 14-19 Folic Acid 1 mg 06/22/25 09:00 06/23/25 08:33 Folic Acid 1 Mg Tablet PO 07/22/25 08:59 Not Given On Hold: 06/23/25 09:38 QDAY AGA Comment: IVP ORDER ACTIVE Folic Acid 1 mg 06/23/25 09:45 06/23/25 10:21 Folic Acid Inj 1 Mg/0.2 Ml IVP 07/23/25 09:44 1 mg QDAY AGA Administration Heparin Sodium (Porcine) 5,000 unit 06/22/25 09:00 06/23/25 08:50 Heparin Sod Inj 5000 Unit/Ml Vial SC 07/06/25 08:59 5,000 unit BID AGA Administration Sodium Chloride 1,000 mls @ 100 mls/hr 06/21/25 21:00 06/23/25 08:28 Ns IV 07/21/25 20:59 Not Given .Q10H AGA Ondansetron HCl 4 mg 06/21/25 20:57 Ondansetron Inj 2 Mg/Ml Inj 2 Ml IVP 07/21/25 20:56 Q6H PRN NAUSEA OR VOMITING Protocol Pantoprazole Sodium 40 mg 06/23/25 09:00 06/23/25 08:30 Pantoprazole 40 Mg Tablet PO 07/23/25 08:59 Not Given QDAY [facility] Sennosides 1 tab 06/21/25 20:57 Senna Tablet PO 07/21/25 20:56 QDAY PRN constipation Protocol Thiamine HCl 100 mg 06/22/25 09:30 06/23/25 08:31 Thiamine 100 Mg Tablet PO 07/22/25 09:29 Not Given On Hold: 06/23/25 09:41 QDAY AGA Comment: IV ORDER ACTIVE Thiamine HCl 100 mg 06/23/25 09:45 06/23/25 10:20 Thiamine Inj 100 Mg/Ml Vial 2 Ml IVP 07/23/25 09:44 100 mg QDAY AGA Administration Plan 55-year-old male with past medical history of hypertension, alcohol use disorder with prior hospitalization for severe alcohol withdrawal, who presented to the ED with anxiety and alcohol withdrawal symptoms. Patient was admitted for alcohol withdrawal. #Alcohol withdrawal, present #Wernicke's encephalopathy, ruled out at present Patient states that he usually drinks 8-10 tall beers every day. Last drink was 06/20/2025 around 4 PM. Today started to feel anxiety with bugs crawling around his skin, nausea but no vomiting, but does endorse auditory hallucinations On physical exam no nystagmus noted, no anisocoria, no ptosis, no diplopia, no limb ataxia, no confusion, normal reflexes Head CT was negative for acute bleed, midline shift or mass effect. Patient received phenobarbital 130 mg x 9 in past 24hrs CIWA 25 at 6AM 06/23 ? IV fluids ? CIWA protocol ? Thiamine 100mg daily ? 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 - Consulted oncology, appreciate reccs - Consult gen surg, if able to skin biopsy #Hx of Essential Hypertension Patient does not appear to be taking any medications for blood pressure #Hyperglycemia, resolved A1c 5.3 Health Maintenance: Diet: Regular GI prophylaxis: Protonix 40 daily DVT prophylaxis: heparin 5000 units twice daily Antibiotics: None CODE STATUS: Full Disposition: Telemetry Case discussed with my attending Dr. Melly Avalos MD PGY-1 Attending Provider Attestation/Addendum I attest that I was physically present for the evaluation, physical examination, lab and imaging review of the patient with the residents. I discussed the case with the residents and agree with the findings and plans of care as documented above. Patient seen and examined at bedside this morning. Overnight, patient had high CIWA scores, agitation and received multiple doses of phenobarbital, diazepam and a dose of chlordiazepoxide. CIWA score this morning has been stable from 4-8. We will continue with CIWA protocol with diazepam and monitor closely for withdrawal symptoms. We will also continue with thiamine and folate. Patient received total of 1040 mg of phenobarbital in less than 24 hours close to his maximum daily dose, we will await at least 24 hours on next dosing. May, recommended general surgery consult for possible melanoma of nose, general surgery consulted, appreciate recommendations. Maryanne Pickard MD
[2025-06-23 12:00] VITALS: BP 135/83; PULSE 106; PULSE 117; RESP 20; TEMP 36.2; O2SAT 93
[2025-06-23] MEDS: SODIUM CHLORIDE 0.9% 1000 ML 1,000 ML 100 ML IV ×2 (13:07→23:33)
[2025-06-23] MEDS: DIAZEPAM INJ 5 MG/ML VIAL 2 ML 2.5 MG IVP ×2 (15:21→22:20)
[2025-06-23 16:00] VITALS: BP 110/84; PULSE 85; PULSE 98; RESP 20; TEMP 36.6; O2SAT 97
[2025-06-23 20:00] VITALS: BP 129/92; PULSE 80; PULSE 81; RESP 17; TEMP 36.5; O2SAT 90
[2025-06-24] VITALS: BP 116/81; PULSE 74; PULSE 77; RESP 16; TEMP 36.2; O2SAT 93
[2025-06-24 04:00] VITALS: BP 123/93; PULSE 77; PULSE 79; RESP 15; TEMP 36.1; O2SAT 92
[2025-06-24 05:27] LABS: Basophils # (Auto) 0.1 Thou/mm3 (0.0-0.2); Basophils % (Auto) 1 % (0-2.5); Eosinophils # (Auto) 0.1 Thou/mm3 (0.0-0.5); Eosinophils % (Auto) 3 % (0-10); Hematocrit 39.0 % (41.0-53.0); Hemoglobin 13.6 g/dL (13.5-16.0); Immature Granulocytes Auto 0.02 Thou/mm3 (0.00-0.00); Lymphocytes # (Auto) 1.2 Thou/mm3 (1.0-4.8); Lymphocytes % (Auto) 26 % (10-50); Mean Corpuscular HGB Conc 34.9 g/dl (31.0-37.0); Mean Corpuscular Hemoglobin 34.0 pg (25.0-35.0); Mean Corpuscular Volume 98 fL (80-100); Monocytes # (Auto) 0.5 Thou/mm3 (0.0-0.8); Monocytes % (Auto) 11 % (0-12); Neutrophils # (Auto) 2.6 Thou/mm3 (1.8-7.7); Neutrophils % (Auto) 59 % (37-80); Nucleated Red Blood Cell # 0.00 Thou/mm3 (0.00-0.00); Nucleated Red Blood Cell % 0 /100 WBC (0); Platelet Count 81 Thou/mm3 (140-440); RDW Standard Deviation 46.5 fL (35.1-43.9); Red Blood Count 4.00 Miln/mm3 (4.50-5.90); White Blood Count 4.5 Thou/mm3 (3.8-10.6)
[2025-06-24 06:11] LABS: Alanine Aminotransferase 157 U/L (10-49); Albumin, Serum 3.8 gm/dL (3.5-5.0); Albumin/Globulin Ratio 1.4 (1.2-2.2); Alkaline Phosphatase 53 U/L (46-116); Anion Gap 11 (7-16); Aspartate Amino Transferase 149 U/L (0-34); BUN/Creatinine Ratio 7 Ratio (12-20); Bilirubin,Total 0.8 mg/dL (0.3-1.2); Blood Urea Nitrogen < 5 mg/dL (9-23); Calcium 8.4 mg/dL (8.3-10.6); Calcium (Corrected) 8.6 mg/dL (8.5-10.1); Carbon Dioxide 24.5 mMol/L (20.0-31.0); Chloride 107 mMol/L (98-107); Creatinine (Component) 0.7 mg/dL (0.6-1.3); Estimated Creatinine Clearance 115.0 mL/min (>60); Globulin 2.8 gm/dL (2.3-3.5); Glucose 85 mg/dL (74-106); Magnesium 2.0 mg/dL (1.6-2.6); Osmolality,Calculated 279 (275-295); Phosphorous 3.4 mg/dL (2.4-5.1); Potassium 3.2 mMol/L (3.4-5.1); Sodium 142 mMol/L (136-145); Total Protein 6.6 gm/dL (5.7-8.2); eGFR > 60 See Note
--- NOTE | 2025-06-24 07:38 | XR_ITS ---
Examination: Abdomen sonogram, Limited Date and time of exam: June 24, 2025, 0817 hours INDICATIONS: Elevated liver function tests today Technique: Real-time collazo scale transabdominal sonographic images of the upper abdomen obtained. Findings: Normal gallbladder. Normal common bile duct 0.3 cm. Pancreatic head 2.4 cm Liver 14.5 cm fatty infiltration no focal liver lesions Normal hepatopetal portal venous flow Patent IVC IMPRESSION: Normal gallbladder
[2025-06-24 08:00] VITALS: BP 114/88; PULSE 82; PULSE 83; RESP 16; TEMP 36.7; O2SAT 96
[2025-06-24] MEDS: FOLIC ACID INJ 1 MG/0.2 ML IVP (08:11)
[2025-06-24] MEDS: PANTOPRAZOLE 40 MG TABLET PO (08:11)
[2025-06-24] MEDS: THIAMINE INJ 100 MG/ML VIAL 2 ML IVP (08:12)
[2025-06-24] MEDS: HEPARIN SOD INJ 5000 UNIT/ML VIAL SC (08:12)
[2025-06-24] MEDS: SODIUM CHLORIDE 0.9% 1000 ML 1,000 ML 100 ML IV ×2 (09:17→21:36)
[2025-06-24] MEDS: DIAZEPAM INJ 5 MG/ML VIAL 2 ML 2.5 MG IVP ×2 (10:52→20:26)
--- NOTE | 2025-06-24 11:49 | ESPR_ITS ---
Documentation for date of: 06/24/25 Subjective Subjective Interval history: Labs reviewed and patient examined at the bedside. Patient's CIWA score is still alternating. Fluctuating between 1 and 14. Today a total of diazepam 7.5 mg IV has been given. Currently seeking option for the biopsy of the patient's encrusted bleeding of the lesion on the dorsum of the nose that could potentially be melanoma. Will continue on the thiamine and folic acid. Denies chest pain, palpation, SOB, N/V, fevers or chills. Exam Vital Signs Temp Pulse Resp BP Pulse Ox O2 Del Method 98.1 F 82 16 114/88 H 96 Room Air 06/24/25 08:00 06/24/25 08:00 06/24/25 08:00 06/24/25 08:00 06/24/25 08:00 06/24/25 08:00 Narrative Exam General: No acute distress, AAO x3, however fluctuates throughout the day. Eye: PERRL, EOMI, normal conjunctiva, no scleral icterus HENT: Normocephalic, atraumatic, hearing intact to conversation at normal volume, moist oral mucosa Neck: Supple, non-tender, no JVD, no lymphadenopathy Lungs: Non-labored respirations, symmetric chest rise, Clear to auscultate bilaterally, No wheezing, rhonchi, crackles Heart: Peripheral pulses intact bilaterally, Regular Rate and Rhythm. Abdomen: Soft, non-tender, non-distended, no palpable masses Musculoskeletal: Normal range of motion and strength, No cyanosis or edema, No visible joint swelling Skin: Skin is warm, dry, no rashes or lesions. Encrusted bleeding of the lesion on the dorsum of the nose Psychiatric: Cooperative, appropriate mood and affect, Awake and alert, not agitated, however fluctuates throughout the day. Neuro: Cranial nerves II-XII grossly intact. Strength 5/5 throughout. Sensations intact to light touch. Objective Labs 06/24/25 04:45 06/24/25 04:45 Labs: Laboratory Results - last 24 hr 06/24/25 04:45 WBC 4.5 RBC 4.00 L Hgb 13.6 Hct 39.0 L MCV 98 MCH 34.0 MCHC 34.9 RDW Std Deviation 46.5 H Plt Count 81 L Neut % (Auto) 59 Lymph % (Auto) 26 [place] % (Auto) 11 Eos % (Auto) 3 Baso % (Auto) 1 Neut # (Auto) 2.6 Lymph # (Auto) 1.2 [place] # (Auto) 0.5 Eos # (Auto) 0.1 Baso # (Auto) 0.1 Immature Gran # (Auto) 0.02 H Absolute Nucleated RBC 0.00 Immature Gran % 0 Nucleated RBC % 0 Sodium 142 Potassium 3.2 L Chloride 107 Carbon Dioxide 24.5 Anion Gap 11 BUN < 5 L Creatinine 0.7 Estim Creat Clear Calc 115.0 eGFR > 60 BUN/Creatinine Ratio 7 L Glucose 85 Calculated Osmolality 279 Calcium 8.4 Corrected Calcium 8.6 Phosphorus 3.4 Magnesium 2.0 Total Bilirubin 0.8 D AST 149 H ALT 157 H Alkaline Phosphatase 53 Total Protein 6.6 Albumin 3.8 D Globulin 2.8 Albumin/Globulin Ratio 1.4 Quality Measures Quality Measures VTE prophylaxis Assessment & Plan Assessment Current Active Medications: Generic Name Dose Route Start Last Admin Trade Name Freq PRN Reason Stop Dose Admin Acetaminophen 650 mg 06/21/25 20:57 Acetaminophen 325 Mg Tablet PO 07/21/25 20:56 Q6H PRN Fever >100.4 Acetaminophen 650 mg 06/21/25 20:57 Acetaminophen 325 Mg Tablet PO 07/21/25 20:56 Q6H PRN PAIN SCALE 1-3 (mild Diazepam 2.5 mg 06/23/25 09:34 06/24/25 10:52 Diazepam Inj 5 Mg/Ml Vial 2 Ml IVP 06/28/25 09:33 2.5 mg Q2HR PRN Administration CIWA SCORE 8-13 Diazepam 10 mg 06/23/25 09:34 Diazepam Inj 5 Mg/Ml Vial 2 Ml IVP 06/28/25 09:33 Q2HR PRN CIWA SCORE 20-25 Diazepam 5 mg 06/23/25 09:34 Diazepam Inj 5 Mg/Ml Vial 2 Ml IVP 06/28/25 09:33 Q2HR PRN CIWA SCORE 14-19 Folic Acid 1 mg 06/22/25 09:00 06/23/25 08:33 Folic Acid 1 Mg Tablet PO 07/22/25 08:59 Not Given On Hold: 06/23/25 09:38 QDAY AGA Comment: IVP ORDER ACTIVE Folic Acid 1 mg 06/23/25 09:45 06/24/25 08:11 Folic Acid Inj 1 Mg/0.2 Ml IVP 07/23/25 09:44 1 mg QDAY AGA Administration Heparin Sodium (Porcine) 5,000 unit 06/22/25 09:00 06/24/25 08:12 Heparin Sod Inj 5000 Unit/Ml Vial SC 07/06/25 08:59 5,000 unit BID AGA Administration Sodium Chloride 1,000 mls @ 100 mls/hr 06/21/25 21:00 06/24/25 09:17 Ns IV 07/21/25 20:59 100 mls/hr .Q10H AGA Administration Ondansetron HCl 4 mg 06/21/25 20:57 Ondansetron Inj 2 Mg/Ml Inj 2 Ml IVP 07/21/25 20:56 Q6H PRN NAUSEA OR VOMITING Protocol Pantoprazole Sodium 40 mg 06/23/25 09:00 06/24/25 08:11 Pantoprazole 40 Mg Tablet PO 07/23/25 08:59 40 mg QDAY AGA Administration Sennosides 1 tab 06/21/25 20:57 Senna Tablet PO 07/21/25 20:56 QDAY PRN constipation Protocol Thiamine HCl 100 mg 06/22/25 09:30 06/23/25 08:31 Thiamine 100 Mg Tablet PO 07/22/25 09:29 Not Given On Hold: 06/23/25 09:41 QDAY AGA Comment: IV ORDER ACTIVE Thiamine HCl 100 mg 06/23/25 09:45 06/24/25 08:12 Thiamine Inj 100 Mg/Ml Vial 2 Ml IVP 07/23/25 09:44 100 mg QDAY AGA Administration Plan 55-year-old male with past medical history of hypertension, alcohol use disorder with prior hospitalization for severe alcohol withdrawal, who presented to the ED with anxiety and alcohol withdrawal symptoms. Patient was admitted for alcohol withdrawal. #Alcohol withdrawal, present #Wernicke's encephalopathy, ruled out at present Patient states that he usually drinks 8-10 tall beers every day. Last drink was 06/20/2025 around 4 PM. Today started to feel anxiety with bugs crawling around his skin, nausea but no vomiting, but does endorse auditory hallucinations On physical exam no nystagmus noted, no anisocoria, no ptosis, no diplopia, no limb ataxia, no confusion, normal reflexes Head CT was negative for acute bleed, midline shift or mass effect. Patient received diazepam 7.5mg IV today. CIWA 25 at 6AM 06/23. CIWA score fluctuates 1 to 14 on 06/24 ? IV fluids ? CIWA protocol ? Thiamine 100mg daily ? 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 - Consulted oncology, appreciate reccs - Consult gen surg, if able to skin biopsy #Hx of Essential Hypertension Patient does not appear to be taking any medications for blood pressure #Hyperglycemia, resolved A1c 5.3 Health Maintenance: Diet: Regular GI prophylaxis: Protonix 40 daily DVT prophylaxis: heparin 5000 units twice daily Antibiotics: None CODE STATUS: Full Disposition: Telemetry Attending Provider Attestation/Addendum I attest that I was physically present for the evaluation, physical examination, lab and imaging review of the patient with the residents. I discussed the case with the residents and agree with the findings and plans of care as documented above. Patient seen and examined at bedside this morning. Appears comfortable and denies any new complaints. Signs have been stable , Has been able to tolerate his diet well. Potassium level is 3.2 this morning, repleted accordingly. Liver function continues to remain high but improved compared to yesterday. Only shows fatty infiltration of the liver. CIWA score this afternoon was 14, we will continue with IV diazepam as per CIWA protocol and monitor for withdrawal symptoms closely. Maryanne Pickard MD
[2025-06-24 12:00] VITALS: BP 109/78; PULSE 76; PULSE 81; RESP 16; TEMP 36.5; O2SAT 95
[2025-06-24] MEDS: DIAZEPAM INJ 5 MG/ML VIAL 2 ML IVP (13:51)
[2025-06-24 16:00] VITALS: BP 147/83; PULSE 104; PULSE 80; RESP 21; TEMP 36.4; O2SAT 97
[2025-06-24 20:00] VITALS: BP 122/84; PULSE 80; PULSE 88; RESP 13; TEMP 36.3; O2SAT 97
[2025-06-25] VITALS: BP 117/88; PULSE 78; PULSE 81; RESP 16; TEMP 36.2; O2SAT 96
[2025-06-25 04:00] VITALS: BP 123/82; PULSE 75; RESP 19; TEMP 36.1; O2SAT 97
[2025-06-25 06:33] LABS: Alanine Aminotransferase 127 U/L (10-49); Albumin, Serum 4.1 gm/dL (3.5-5.0); Albumin/Globulin Ratio 1.5 (1.2-2.2); Alkaline Phosphatase 54 U/L (46-116); Anion Gap 8 (7-16); Aspartate Amino Transferase 116 U/L (0-34); BUN/Creatinine Ratio 9 Ratio (12-20); Bilirubin,Total 0.7 mg/dL (0.3-1.2); Blood Urea Nitrogen 6 mg/dL (9-23); Calcium 8.8 mg/dL (8.3-10.6); Calcium (Corrected) 8.8 mg/dL (8.5-10.1); Carbon Dioxide 23.1 mMol/L (20.0-31.0); Chloride 108 mMol/L (98-107); Creatinine (Component) 0.7 mg/dL (0.6-1.3); Estimated Creatinine Clearance 115.0 mL/min (>60); Globulin 2.8 gm/dL (2.3-3.5); Glucose 92 mg/dL (74-106); Osmolality,Calculated 275 (275-295); Potassium 4.2 mMol/L (3.4-5.1); Sodium 139 mMol/L (136-145); Total Protein 6.9 gm/dL (5.7-8.2); eGFR > 60 See Note
[2025-06-25 07:19] LABS: Basophils # (Auto) 0.1 Thou/mm3 (0.0-0.2); Basophils % (Auto) 1 % (0-2.5); Eosinophils # (Auto) 0.1 Thou/mm3 (0.0-0.5); Eosinophils % (Auto) 2 % (0-10); Hematocrit 38.4 % (41.0-53.0); Hemoglobin 13.4 g/dL (13.5-16.0); Immature Granulocytes Auto 0.02 Thou/mm3 (0.00-0.00); Lymphocytes # (Auto) 1.3 Thou/mm3 (1.0-4.8); Lymphocytes % (Auto) 25 % (10-50); Mean Corpuscular HGB Conc 34.9 g/dl (31.0-37.0); Mean Corpuscular Hemoglobin 34.0 pg (25.0-35.0); Mean Corpuscular Volume 98 fL (80-100); Monocytes # (Auto) 0.7 Thou/mm3 (0.0-0.8); Monocytes % (Auto) 13 % (0-12); Neutrophils # (Auto) 3.1 Thou/mm3 (1.8-7.7); Neutrophils % (Auto) 59 % (37-80); Nucleated Red Blood Cell # 0.00 Thou/mm3 (0.00-0.00); Nucleated Red Blood Cell % 0 /100 WBC (0); Platelet Count 115 Thou/mm3 (140-440); RDW Standard Deviation 45.9 fL (35.1-43.9); Red Blood Count 3.94 Miln/mm3 (4.50-5.90); White Blood Count 5.3 Thou/mm3 (3.8-10.6)
[2025-06-25 08:00] VITALS: BP 126/85; PULSE 74; RESP 17; TEMP 36.5; O2SAT 95
--- NOTE | 2025-06-25 08:45 | PC.SS ---
Follow up note: Biopsy pending. Dr. Gonzalez's recommendations are pending. CWAL is low. Pt will return home upon dc.
[2025-06-25] MEDS: HEPARIN SOD INJ 5000 UNIT/ML VIAL SC ×2 (09:23→21:47)
[2025-06-25] MEDS: THIAMINE INJ 100 MG/ML VIAL 2 ML IVP (09:23)
[2025-06-25] MEDS: PANTOPRAZOLE 40 MG TABLET PO (09:23)
[2025-06-25] MEDS: FOLIC ACID INJ 1 MG/0.2 ML IVP (09:25)
[2025-06-25] MEDS: SODIUM CHLORIDE 0.9% 1000 ML 1,000 ML 100 ML IV (11:00)
[2025-06-25 11:27] VITALS: BMI 22.8
--- NOTE | 2025-06-25 11:27 | PD.RESDS ---
Planned Discharge Date 06/25/25 DS: Providers Provider Date of admission: 06/21/25 20:57 Primary care physician: Physician No Primary/Family Admitting Provider: Valentin Krueger MD Attending Provider on Admission: Maryanne Pickard MD Consults: 06/21/25 22:52 Consult to Oncology Routine Comment: ? melanoma nares Consulting Provider: Audie Hennessy 06/23/25 13:27 Consult to General Surgery Routine Comment: skin biopsy of ulcerating lesion dorsum of nose Consulting Provider: Gladys Lugo 06/25/25 10:10 Consult to General Surgery Routine Comment: Possible melanoma biopsy needed Consulting Provider: Juan Sen Attending Provider on DC: Deshawn Avalos MD Discharging Provider: Deshawn Avalos MD Hospital Course Hospital Course Hospital course: Labs reviewed and patient examined at the bedside. Patient's CIWA score is still alternating. Fluctuating between 1 and 14. Today a total of diazepam 7.5 mg IV has been given. Currently seeking option for the biopsy of the patient's encrusted bleeding of the lesion on the dorsum of the nose that could potentially be melanoma. Will continue on the thiamine and folic acid. Denies chest pain, palpation, SOB, N/V, fevers or chills. Time Spent with Patient Time attestation: Total time spent providing and/or coordinating discharge services: Exam Vital Signs Temp Pulse Resp BP Pulse Ox O2 Del Method 97.7 F 74 17 126/85 H 95 Room Air 06/25/25 08:00 06/25/25 08:00 06/25/25 08:00 06/25/25 08:00 06/25/25 08:00 06/25/25 08:00 Discharge Plan Plan Patient Disposition: HOME (Self Care) Care Plan Goals: Please continue to take folic acid and thiamine vitamins for one month Please take naltrexone 50mg tablet once a day for alcohol use disorder Stop drinking alcohol completely Please follow-up with PCP within 1 week of discharge or follow-up at the [facility] [address] [place], [place] [id number] Ask your PCP to refer you to an alcohol-use disorder program If your symptoms worsen or if you develop new chest pain, shortness of breath, dizziness or drink alcohol again - please come back to the ED immediately. Prescriptions/Referrals Prescriptions/Med Rec: New thiamine mononitrate (vit B1) 100 mg Tablet 100 mg PO QDAY 30 Days Qty: 30 0RF folic acid 1 mg Tablet 1 mg PO QDAY 30 Days Qty: 30 0RF naltrexone 50 mg tablet 50 mg PO QDAY 30 Days Qty: 30 0RF Discontinued thiamine mononitrate (vit B1) [Vitamin B-1 (mononitrate)] 100 mg tablet 100 mg PO QDAY Qty: 30 0RF multivitamin with folic acid [Tab-A-Evie] 400 mcg tablet 1 tab PO QDAY Qty: 30 0RF Referrals: No Primary/Family,Physician [Primary Care Provider] Patient/Caregiver Discharge Instructions Education Materials: Social Drinking vs Problem Drinking, Alcohol Withdrawal: What to Expect Print Language: Sami Stand Alone Forms: Cat Award Info., Patient Portal Info Letter
[2025-06-25 12:00] VITALS: BP 126/80; PULSE 80; RESP 18; TEMP 36.3; O2SAT 96
[2025-06-25] MEDS: DIAZEPAM INJ 5 MG/ML VIAL 2 ML IVP (13:43)
--- NOTE | 2025-06-25 13:47 | PC.NURSE ---
Called Luz to come and sit at bedside with . She will be here in an hour. I had to call a félix collazo. Patient constantly trying to pull out IV's. Urinated all over the floor and trying to get out of bed.Patient is very confused and agitated. Thinks he is at home and wants to put out his trash cans so they could be picked up.
--- NOTE | 2025-06-25 15:24 | PC.NURSE ---
and family at bedside. They are talking to patient about how he needs to stay in bed and use the urinal to urinate. To listen to staff and his nurse so he does not have to be put on restraint and he can go home.
[2025-06-25 16:00] VITALS: BP 127/75; PULSE 89; RESP 18; TEMP 36.9; O2SAT 95
--- NOTE | 2025-06-25 17:04 | ESPR_ITS ---
<Statement entered by Lefty Reagan MD - 06/25/25 17:09> Patient seen and assessed in hospital bed denies having any concerning symptoms at this time. Patient CIWA score fluctuates based on subjective nursing reports. Patient CIWA fluctuates from as low as 0?1 up to 17 but on assessment patient appears slightly anxious but denies having any symptoms such as hallucinations both audio and visual, tremors, diaphoresis. Will continue monitoring and continue CIWA protocol at this time. Patient's family bedside updated regarding patient's nose lesion. At this time general surgery recommends going forward with a punch biopsy which we will complete on 06/26. Expect discharge within the next 24 hours if patient remains stable. I have personally seen and examined the patient. I agree with the resident's assessment and plan as documented below. Lefty Reagan DO PGY-2 Internal Medicine - [facility] Documentation for date of: 06/25/25 Subjective Subjective Interval history: Patient seen at bedside. No acute overnight events. CIWA score fluctuates from 1-17. Diazepam 5 mg in total was given today. Patient to undergo punch biopsy of the and will be discharged likely tomorrow. Patient tolerated meals today and had a bowel movement with hard stools. Stated that slept well overnight. Not complaining of any chest pain shortness of breath or any nausea vomiting. Exam Vital Signs Temp Pulse Resp BP Pulse Ox O2 Del Method 97.4 F 80 18 126/80 96 Room Air 06/25/25 12:00 06/25/25 12:00 06/25/25 12:00 06/25/25 12:00 06/25/25 12:00 06/25/25 12:00 Narrative Exam General: No acute distress, AAO x3, however fluctuates throughout the day. Eye: PERRL, EOMI, normal conjunctiva, no scleral icterus HENT: Normocephalic, atraumatic, hearing intact to conversation at normal volume, moist oral mucosa Neck: Supple, non-tender, no JVD, no lymphadenopathy Lungs: Non-labored respirations, symmetric chest rise, Clear to auscultate bilaterally, No wheezing, rhonchi, crackles Heart: Peripheral pulses intact bilaterally, Regular Rate and Rhythm. Abdomen: Soft, non-tender, non-distended, no palpable masses Musculoskeletal: Normal range of motion and strength, No cyanosis or edema, No visible joint swelling Skin: Skin is warm, dry, no rashes or lesions. Encrusted bleeding of the lesion on the dorsum of the nose Psychiatric: Cooperative, appropriate mood and affect, Awake and alert, not agitated, however fluctuates throughout the day. Neuro: Cranial nerves II-XII grossly intact. Strength 5/5 throughout. Sensations intact to light touch. Objective Labs 06/26/25 05:11 06/26/25 05:11 Labs: Laboratory Results - last 24 hr 06/25/25 06/25/25 05:17 06:45 WBC 5.3 RBC 3.94 L Hgb 13.4 L Hct 38.4 L MCV 98 MCH 34.0 MCHC 34.9 RDW Std Deviation 45.9 H Plt Count 115 L D Neut % (Auto) 59 Lymph % (Auto) 25 [place] % (Auto) 13 H Eos % (Auto) 2 Baso % (Auto) 1 Neut # (Auto) 3.1 Lymph # (Auto) 1.3 [place] # (Auto) 0.7 Eos # (Auto) 0.1 Baso # (Auto) 0.1 Immature Gran # (Auto) 0.02 H Absolute Nucleated RBC 0.00 Immature Gran % 0 Nucleated RBC % 0 Sodium 139 Potassium 4.2 D Chloride 108 H Carbon Dioxide 23.1 Anion Gap 8 BUN 6 L Creatinine 0.7 Estim Creat Clear Calc 115.0 eGFR > 60 BUN/Creatinine Ratio 9 L Glucose 92 Calculated Osmolality 275 Calcium 8.8 Corrected Calcium 8.8 Total Bilirubin 0.7 AST 116 H ALT 127 H Alkaline Phosphatase 54 Total Protein 6.9 Albumin 4.1 Globulin 2.8 Albumin/Globulin Ratio 1.5 Quality Measures Quality Measures VTE prophylaxis Assessment & Plan Assessment Current Active Medications: Generic Name Dose Route Start Last Admin Trade Name Freq PRN Reason Stop Dose Admin Acetaminophen 650 mg 06/21/25 20:57 Acetaminophen 325 Mg Tablet PO 07/21/25 20:56 Q6H PRN Fever >100.4 Acetaminophen 650 mg 06/21/25 20:57 Acetaminophen 325 Mg Tablet PO 07/21/25 20:56 Q6H PRN PAIN SCALE 1-3 (mild Diazepam 2.5 mg 06/23/25 09:34 06/24/25 20:26 Diazepam Inj 5 Mg/Ml Vial 2 Ml IVP 06/28/25 09:33 2.5 mg Q2HR PRN Administration CIWA SCORE 8-13 Diazepam 10 mg 06/23/25 09:34 Diazepam Inj 5 Mg/Ml Vial 2 Ml IVP 06/28/25 09:33 Q2HR PRN CIWA SCORE 20-25 Diazepam 5 mg 06/23/25 09:34 06/25/25 13:43 Diazepam Inj 5 Mg/Ml Vial 2 Ml IVP 06/28/25 09:33 5 mg Q2HR PRN Administration CIWA SCORE 14-19 Folic Acid 1 mg 06/22/25 09:00 06/23/25 08:33 Folic Acid 1 Mg Tablet PO 07/22/25 08:59 Not Given On Hold: 06/23/25 09:38 QDAY AGA Comment: IVP ORDER ACTIVE Folic Acid 1 mg 06/23/25 09:45 06/25/25 09:25 Folic Acid Inj 1 Mg/0.2 Ml IVP 07/23/25 09:44 1 mg QDAY AGA Administration Heparin Sodium (Porcine) 5,000 unit 06/22/25 09:00 06/25/25 09:23 Heparin Sod Inj 5000 Unit/Ml Vial SC 07/06/25 08:59 5,000 unit BID AGA Administration Sodium Chloride 1,000 mls @ 100 mls/hr 06/21/25 21:00 06/25/25 11:00 Ns IV 07/21/25 20:59 100 mls/hr .Q10H AGA Administration Ondansetron HCl 4 mg 06/21/25 20:57 Ondansetron Inj 2 Mg/Ml Inj 2 Ml IVP 07/21/25 20:56 Q6H PRN NAUSEA OR VOMITING Protocol Pantoprazole Sodium 40 mg 06/23/25 09:00 06/25/25 09:23 Pantoprazole 40 Mg Tablet PO 07/23/25 08:59 40 mg QDAY AGA Administration Sennosides 1 tab 06/21/25 20:57 Senna Tablet PO 07/21/25 20:56 QDAY PRN constipation Protocol Thiamine HCl 100 mg 06/22/25 09:30 06/23/25 08:31 Thiamine 100 Mg Tablet PO 07/22/25 09:29 Not Given On Hold: 06/23/25 09:41 QDAY AGA Comment: IV ORDER ACTIVE Thiamine HCl 100 mg 06/23/25 09:45 06/25/25 09:23 Thiamine Inj 100 Mg/Ml Vial 2 Ml IVP 07/23/25 09:44 100 mg QDAY AGA Administration Plan 55-year-old male with past medical history of hypertension, alcohol use disorder with prior hospitalization for severe alcohol withdrawal, who presented to the ED with anxiety and alcohol withdrawal symptoms. Patient was admitted for alcohol withdrawal. #Alcohol withdrawal, present #Wernicke's encephalopathy, ruled out at present Patient states that he usually drinks 8-10 tall beers every day. Last drink was 06/20/2025 around 4 PM. Today started to feel anxiety with bugs crawling around his skin, nausea but no vomiting, but does endorse auditory hallucinations On physical exam no nystagmus noted, no anisocoria, no ptosis, no diplopia, no limb ataxia, no confusion, normal reflexes Head CT was negative for acute bleed, midline shift or mass effect. Patient received diazepam 7.5mg IV today. CIWA 25 at 6AM 06/23. CIWA score fluctuates 1 to 14 on 06/24 ? IV fluids ? CIWA protocol ? Thiamine 100mg daily ? 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 - Consulted oncology, appreciate reccs - Consult gen surg, if able to skin biopsy #Hx of Essential Hypertension Patient does not appear to be taking any medications for blood pressure BP stable in-patient Plan - Monitor #Hyperglycemia, resolved A1c 5.3 Health Maintenance: Diet: Regular GI prophylaxis: Protonix 40 daily DVT prophylaxis: heparin 5000 units twice daily Antibiotics: None CODE STATUS: Full Disposition: Telemetry Case discussed with my attending Dr. Pickard, and senior resident, Dr. Tez Avalos MD PGY-1 Attending Provider Attestation/Addendum I attest that I was physically present for the evaluation, physical examination, lab and imaging review of the patient with the residents. I discussed the case with the residents and agree with the findings and plans of care as documented above. Maryanne Pickard MD
[2025-06-25 20:00] VITALS: BP 129/86; PULSE 88; RESP 19; TEMP 36.1; O2SAT 99
[2025-06-26] VITALS: BP 130/84; PULSE 76; RESP 18; TEMP 36.6; O2SAT 98
[2025-06-26] MEDS: SODIUM CHLORIDE 0.9% 1000 ML 1,000 ML 100 ML IV ×2 (01:39→11:58)
[2025-06-26 04:00] VITALS: BP 132/84; PULSE 75; RESP 18; TEMP 36.5; O2SAT 97
[2025-06-26 05:50] LABS: Basophils # (Auto) 0.1 Thou/mm3 (0.0-0.2); Basophils % (Auto) 1 % (0-2.5); Eosinophils # (Auto) 0.1 Thou/mm3 (0.0-0.5); Eosinophils % (Auto) 3 % (0-10); Hematocrit 38.8 % (41.0-53.0); Hemoglobin 13.3 g/dL (13.5-16.0); Immature Granulocytes Auto 0.04 Thou/mm3 (0.00-0.00); Lymphocytes # (Auto) 1.2 Thou/mm3 (1.0-4.8); Lymphocytes % (Auto) 28 % (10-50); Mean Corpuscular HGB Conc 34.3 g/dl (31.0-37.0); Mean Corpuscular Hemoglobin 33.8 pg (25.0-35.0); Mean Corpuscular Volume 99 fL (80-100); Monocytes # (Auto) 0.7 Thou/mm3 (0.0-0.8); Monocytes % (Auto) 17 % (0-12); Neutrophils # (Auto) 2.1 Thou/mm3 (1.8-7.7); Neutrophils % (Auto) 50 % (37-80); Nucleated Red Blood Cell # 0.00 Thou/mm3 (0.00-0.00); Nucleated Red Blood Cell % 0 /100 WBC (0); Platelet Count 117 Thou/mm3 (140-440); RDW Standard Deviation 47.0 fL (35.1-43.9); Red Blood Count 3.93 Miln/mm3 (4.50-5.90); White Blood Count 4.2 Thou/mm3 (3.8-10.6)
[2025-06-26 06:00] VITALS: BMI 22.8
[2025-06-26 06:19] LABS: Alanine Aminotransferase 95 U/L (10-49); Albumin, Serum 4.1 gm/dL (3.5-5.0); Albumin/Globulin Ratio 1.6 (1.2-2.2); Alkaline Phosphatase 62 U/L (46-116); Anion Gap 10 (7-16); Aspartate Amino Transferase 90 U/L (0-34); BUN/Creatinine Ratio 7 Ratio (12-20); Bilirubin,Total 0.4 mg/dL (0.3-1.2); Blood Urea Nitrogen 5 mg/dL (9-23); Calcium 8.9 mg/dL (8.3-10.6); Calcium (Corrected) 8.9 mg/dL (8.5-10.1); Carbon Dioxide 26.8 mMol/L (20.0-31.0); Chloride 106 mMol/L (98-107); Creatinine (Component) 0.7 mg/dL (0.6-1.3); Estimated Creatinine Clearance 115.0 mL/min (>60); Globulin 2.6 gm/dL (2.3-3.5); Glucose 91 mg/dL (74-106); Osmolality,Calculated 282 (275-295); Potassium 3.6 mMol/L (3.4-5.1); Sodium 143 mMol/L (136-145); Total Protein 6.7 gm/dL (5.7-8.2); eGFR > 60 See Note
[2025-06-26 08:00] VITALS: BP 110/71; PULSE 93; RESP 18; TEMP 36.7; O2SAT 98
[2025-06-26] MEDS: PANTOPRAZOLE 40 MG TABLET PO (09:00)
[2025-06-26] MEDS: HEPARIN SOD INJ 5000 UNIT/ML VIAL SC (09:00)
[2025-06-26] MEDS: THIAMINE INJ 100 MG/ML VIAL 2 ML IVP (09:00)
--- NOTE | 2025-06-26 11:57 | PD.RESDS ---
Planned Discharge Date 06/26/25 DS: Providers Provider Date of admission: 06/21/25 20:57 Primary care physician: Physician No Primary/Family Admitting Provider: Valentin Krueger MD Attending Provider on Admission: Maryanne Pickard MD Consults: 06/21/25 22:52 Consult to Oncology Routine Comment: ? melanoma nares Consulting Provider: Audie Hennessy 06/23/25 13:27 Consult to General Surgery Routine Comment: skin biopsy of ulcerating lesion dorsum of nose Consulting Provider: Gladys Lugo 06/25/25 10:10 Consult to General Surgery Routine Comment: Possible melanoma biopsy needed Consulting Provider: Juan Sen Attending Provider on DC: Maryanne Pickard MD Discharging Provider: Maryanne Pickard MD DS: Diagnosis Problem List Completed Was Problem List Reviewed/Reconciled?: Yes Hospital Course Hospital Course Hospital course: 55-year-old male with past medical history of hypertension, alcohol use disorder with prior hospitalization for severe alcohol withdrawal, who presented to the ED with anxiety and alcohol withdrawal symptoms. Patient was admitted for alcohol withdrawal. ED course: Initial vitals included BP 160/85, HR 92 bpm, RR 17, saturating 96% on room air, labs significant for hemoglobin 13.1, glucose 188, T. bili 1.3, AST 47, UA negative for UTI, U tox negative for any drug use. Head CT negative for any acute hemorrhage, midline shift or mas effect. Hospital course: Patient was on CIWA protocol. Patient was still experiencing withdrawal symptoms as a result received multiple doses of phenobarbital until CIWA levels were within control. Patient also received thiamine 100 mg daily and folic acid 1 mg daily along with IV hydration. While in hospital oncology was consulted, Dr. Hennessy, due to concern for melanoma on the nose due to nasal dorsum ulcerative lesion measuring approximately 5 cm in diameter. A punch biopsy of this lesion was done and sent for pathology study. Discharge instructions: - Please continue to take folic acid and thiamine vitamins for one month - Please take naltrexone 50mg tablet once a day for alcohol use disorder - Stop drinking alcohol completely - Follow-up with Dr. Hennessy (radiology oncology) for pathology results within 1 week of discharge for possible melanoma/skin necrosis - Please follow-up with PCP within 1 week of discharge or follow-up at the [facility] [address] [place] [address] - Ask your PCP to refer you to an alcohol-use disorder program - If your symptoms worsen or if you develop new chest pain, shortness of breath, dizziness or drink alcohol again - please come back to the ED immediately. Admission diagnoses #Alcohol withdrawal #Wernicke's encephalopathy, ruled out #Nasal dorsum ulcerative tumor #Concern for Melanoma #Hx of Essential Hypertension #Hyperglycemia, resolved Case discussed with my attending Dr. Pickard, and senior resident, Dr. Tez Avalos MD PGY-1 Status at Discharge Overall status at discharge: patient is progressing back to baseline Time Spent with Patient Time attestation: Total time spent providing and/or coordinating discharge services: 37 min Time spent: Greater than 30 minutes Exam Vital Signs Temp Pulse Resp BP Pulse Ox O2 Del Method 98.1 F 93 18 110/71 98 Room Air 06/26/25 08:00 06/26/25 08:00 06/26/25 08:00 06/26/25 08:00 06/26/25 08:00 06/26/25 08:00 Narrative Exam General: No acute distress, AAO x3 Eye: PERRL, EOMI, normal conjunctiva, no scleral icterus HENT: Normocephalic, atraumatic, hearing intact to conversation at normal volume, moist oral mucosa Neck: Supple, non-tender, no JVD, no lymphadenopathy Lungs: Non-labored respirations, symmetric chest rise, Clear to auscultate bilaterally, No wheezing, rhonchi, crackles Heart: Peripheral pulses intact bilaterally, Regular Rate and Rhythm. Abdomen: Soft, non-tender, non-distended, no palpable masses Musculoskeletal: Normal range of motion and strength, No cyanosis or edema, No visible joint swelling Skin: Skin is warm, dry, no rashes or lesions. Encrusted bleeding of the lesion on the dorsum of the nose Neuro: Cranial nerves II-XII grossly intact. Strength 5/5 throughout. Sensations intact to light touch. Discharge Plan Plan Patient Disposition: HOME (Self Care) Care Plan Goals: Please continue to take folic acid and thiamine vitamins for one month Please take naltrexone 50mg tablet once a day for alcohol use disorder Stop drinking alcohol completely Follow-up with Dr. Hennessy (radiology oncology) for pathology results within 1 week of discharge for possible melanoma/skin necrosis Please follow-up with PCP within 1 week of discharge or follow-up at the [facility] [address] [place] [address] Ask your PCP to refer you to an alcohol-use disorder program If your symptoms worsen or if you develop new chest pain, shortness of breath, dizziness or drink alcohol again - please come back to the ED immediately. Prescriptions/Referrals Prescriptions/Med Rec: New thiamine mononitrate (vit B1) 100 mg Tablet 100 mg PO QDAY 30 Days Qty: 30 0RF folic acid 1 mg Tablet 1 mg PO QDAY 30 Days Qty: 30 0RF naltrexone 50 mg tablet 50 mg PO QDAY 30 Days Qty: 30 0RF Discontinued thiamine mononitrate (vit B1) [Vitamin B-1 (mononitrate)] 100 mg tablet 100 mg PO QDAY Qty: 30 0RF multivitamin with folic acid [Tab-A-Evie] 400 mcg tablet 1 tab PO QDAY Qty: 30 0RF Referrals: Audie Hennessy MD [Physician, Radiation Oncology] No Primary/Family,Physician [Primary Care Provider] Patient/Caregiver Discharge Instructions Education Materials: Social Drinking vs Problem Drinking, Alcohol Withdrawal: What to Expect Print Language: Kazakh Stand Alone Forms: Cat Award Info., Patient Portal Info Letter Discharge Order Discharge Orders: Discharge (Routine); Ordered 06/26/25 Ordered By: Lefty Reagan Quality Discharge Quality Measures VTE prophylaxis Attestestation Attestation I attest that I was physically present for the evaluation, physical examination, lab and imaging review of the patient with the residents. I discussed the case with the residents and agree with the findings and plans of care as documented above. Patient seen and examined at bedside this morning. Appears comfortable and denies any new complaints. Vital signs are stable, results are stable as well. CIWA score this morning was 0 and has been stable. Punch biopsy was obtained and sent for pathology. We will discharge patient on naltrexone, thiamine and folate. Recommended to follow-up with his PCP in 1 to 2 weeks of discharge. Maryanne Pickard MD
[2025-06-26 12:00] VITALS: BP 115/77; PULSE 71; RESP 18; TEMP 36.8; O2SAT 97
[2025-06-26] MEDS: DIAZEPAM INJ 5 MG/ML VIAL 2 ML 2.5 MG IVP (12:05)
[2025-06-26] MEDS: LIDOCAINE HCL 1% 20 ML VIAL 10 ML IM (13:44)
[2025-06-26] MEDS: ACETAMINOPHEN 325 MG TABLET 650 MG PO (14:15)
--- NOTE | 2025-06-26 14:17 | ESOP_ITS ---
<Statement entered by Lefty Reagan MD - 06/26/25 18:11> I have personally seen and examined the patient. I agree with the resident's procedure note as documented below. Lefty Reagan, DO PGY-2 Internal Medicine - GME PROCEDURES: Procedure Date / Time 06/26/25 1417 Skin Biopsy Visualized the lesion, cleaned the area using alcohol pad, anesthetized the lesion by 1% lidocaine, used 5mm punch biopsy to obtain 2 samples at 7 and 9 o clock border, sent to pathology Informed consent given: Yes Consent signed: Yes Lesion description: Asymmetric, irregular border, multicolored, 5x6cm. Patient had lesion for 2 months growing in size. Type of biopsy: punch Anesthesia: local Hemostasis: pressure Wound closure: secondary intention Complications: none
== END 2025-06-26 15:58 | disposition home or self-care (01) | DRG 775 ==
LOC: SERX 20:46 → SERHOLD 06-22 10:04 → S2NX 06-22 10:04 → S3NX 06-25 10:22
PROVIDERS: Nurse Practitioner Family; Student in an Organized Health Care Education/Training Program; Admitting Provider Student in an Organized Health Care Education/Training Program; Emergency Provider Emergency Medicine; Visit Provider Student in an Organized Health Care Education/Training Program
DX: F10.239 Alcohol dependence with withdrawal, unspecified (principal); I10 Essential (primary) hypertension; R44.0 Auditory hallucinations; F41.9 Anxiety disorder, unspecified; R29.6 Repeated falls; H55.09 Other forms of nystagmus; I16.0 Hypertensive urgency; R73.9 Hyperglycemia, unspecified; R44.1 Visual hallucinations; K76.0 Fatty (change of) liver, not elsewhere classified; L98.9 Disorder of the skin and subcutaneous tissue, unspecified
CPT/HCPCS: 36415; 70450; 71045; 76705; 80053; 80307; 80320; 81001; 83036; 83735; 84100; 84484; 85025; 85730; 93005; 94762; 96361; 96365; 96375; 99284; A4216; J1644; J2470; J2560; J3360; J3411; J3475; J3480; J3490; J7030; J7050; J7120; A9270; G0480

== ENCOUNTER 2025-09-16 13:59 | Outpatient (RCR) | payer MEDICAID, SELFPAY ==
--- NOTE | 2025-09-15 17:01 | CTCSNOTE_ITS ---
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 (C) CT slices included face (D) 3D Will be needed for maximum sparing of adjacent normal critical structures. (E) Patient tolerated the simulation well and left the room in good condition. Electronically signed by: Audie Hennessy MD, GIOVANIR 09/15/2025 4:59 PM
== END 2025-09-17 23:59 | disposition home or self-care (01) ==
LOC: SCTC 13:59
PROVIDERS: PCP Family Medicine; Referring Provider Family Medicine; Visit Provider Radiology Therapeutic Radiology
DX: C44.311 Basal cell carcinoma of skin of nose (principal)
CPT/HCPCS: 77290; 77334; 77387